=== PATIENT | male | born 1950 | race Caucasian/White ===

== ENCOUNTER 2016-04-28 09:37 | Emergency (ER) | payer BC, OTHER ==
[~2016-04-28] VITALS: Ht 177.8 cm; Wt 93.0 kg
[~2016-04-28 09:37] MED LIST: ATEN-175 PO; CETI10TA84 PO; CLR10 PO; FLUT0.0529 NAE; HOME1TAB18 PO; LOSA25TA18 PO; MONT1TAB3 PO
[2016-04-28 09:42] VITALS: TEMP 36.3; Ht 177.8 cm; Wt 93.0 kg
[2016-04-28] MEDS ORDERED: MULT-506 PO (10:21)
[2016-04-28] MEDS ORDERED: FEXO1TAB49 PO (10:23)
[2016-04-28] MEDS ORDERED: MAGN500T4 PO (10:26)
[2016-04-28] MEDS ORDERED: MELO7.5T5 PO (10:28)
[2016-04-28] MEDS ORDERED: GLUC1CAP35 PO (10:30)
[2016-04-28] MEDS ORDERED: CHOL20007 PO (10:31)
[2016-04-28] MEDS ORDERED: FLUT0.15 NAE (10:34)
--- NOTE | 2016-04-28 10:52 | DIAGNOSTIC IMAGING REPORT ---
LEFT SHOULDER MIN 2 VIEWS ROUTINE, LEFT HUMERUS MIN 2 VIEWS ROUTINE CLINICAL HISTORY: LEFT SHOULDER/ARM INJURY COMPARISON STUDY: None. FINDINGS: There is a comminuted fracture involving the proximal left humeral shaft and left humeral neck. This is slightly impacted but not significantly displaced. There is anterior inferior subluxation of the humeral head in relation to the glenoid. The left clavicle appears intact. Partially visualized cervical spinal fusion hardware. The mid to distal humerus appears intact. IMPRESSION: Comminuted fracture involving the proximal left humeral shaft and left humeral neck which is slightly impacted. There is also anterior inferior subluxation of the humeral head in relation to the glenoid. Electronically signed by: Patricio Honeycutt M.D. 04/28/2016 10:50 AM Dictated Date/Time: 04/28/2016 10:47 AM
[2016-04-28] MEDS ORDERED: ONDANSETRON INJ 2 MG/ML 2 ML VIAL IV STA (11:01)
[2016-04-28] MEDS ORDERED: MoRPHine SULFATE 4 MG/ML 1 ML CARP\\VIAL IV STA (11:01)
[2016-04-28] MEDS ORDERED: OXYC1TAB3 PO (11:58)
--- NOTE | 2016-04-28 11:59 | EMERGENCY ROOM VISIT NOTE ---
History First contact with patient: 10:14 Chief Complaint: FALL Stated Complaint: FELL, INJURED UPPER ARM AND SHOULDER/LEFT History of Present Illness The patient is a 66 year old male who presents to the Emergency Department by private vehicle for evaluation of his LEFT shoulder injury. The patient reports that he slipped on the ice at 8:30 this morning and landed on the lateral aspect of the LEFT shoulder. He did not strike his head. He did not lose consciousness. He reports intense pain to the LEFT shoulder. He reports increasing pain with range of motion. He complains of tingling into the fingers. He denies a previous history of fracture or injury to the affected area. The patient rates his current discomfort as an 8/10. He is tried nothing for his pain to this point. The patient denies any associated headaches , neck pain, chest pain, pleuritic pain, nausea, or vomiting. Review of Systems A complete 10-point Review of Systems was discussed with the patient, with pertinent positives and negatives listed in the History of Present Illness. All remaining Review of Systems questions can be considered negative unless otherwise specified. Past Medical/Surgical History Medical Problems: (1) Essential hypertension Surgical Problems: (1) History of cervical discectomy Social History Smoking Status: Never Smoker Smokeless Tobacco Use: No Alcohol Use: occasionally Marital Status: Housing Status: lives with significant other Occupation Status: employed Current/Historical Medications Scheduled Atenolol (Tenormin), 25 MG PO QAM Cholecalciferol (Vitamin D3), 1 TAB PO DAILY Fexofenadine Hcl (Franchesca Allergy), 1 TAB PO QPM Ncjzfccnwpc-Gvvbgeoxruz-Uef C- (Glucosamine Chondroitin), 500 MG PO BID Homeopathic Products (Leg Cramp Relief), 2 TAB PO HS Losartan Potassium (Cozaar), 25 MG PO QAM Magnesium Oxide (Mg Supplement (Magnesium), 500 MG PO QPM Montelukast Sodium (Singulair), 10 MG PO HS Multivitamin (Multivitamin), 1 TAB PO DAILY Scheduled PRN Cetirizine (Zyrtec), 10 MG PO DAILY PRN for ALLERGY SYMPTOMS Fluticasone Propionate (Nasal) (Flonase Allergy Relief), 1 SPRAY ANASTASIA HS PRN for Nasal Congestion Loratadine (Claritin), 10 MG PO DAILY PRN for ALLERGY SYMPTOMS Meloxicam (Mobic), Unknown Dose PO DAILY PRN for Pain Oxycodone Ir (Roxicodone Ir), 1-2 TAB PO Q4H PRN for Pain Allergies Coded Allergies: Cephalosporins (Verified Allergy, Unknown, KEFLEX = UNKNOWN RXN, 04/28/16) PER ADMISSION ORDER SHEET DR CASTREJON [id number] Chloramphenicol (Verified Allergy, Unknown, 04/28/16) Physical Exam Vital Signs Date Time Temp Pulse Resp B/P Pulse Ox O2 Delivery O2 Flow Rate FiO2 04/28/16 12:09 55 18 119/79 98 Room Air 04/28/16 11:39 57 20 121/72 97 Room Air 04/28/16 09:42 36.3 69 20 97/75 98 Room Air Pain Rating (0-10): 8 Physical Exam VITAL SIGNS - Vital signs and nursing notes were reviewed. GENERAL - 66-year-old male appearing his stated age and in noticeable discomfort throughout the exam. NECK - FROM of the cervical spine. No spinous process or paraspinal muscle tenderness to palpation. No nuchal rigidity. LUNGS - Chest wall symmetric without accessory muscle use, intercostals retractions, or central cyanosis. Normal vesicular breath sounds CTA B/L. No wheezes, rales, or rhonchi appreciated. CARDIAC - RRR with S1/S2. No murmur, rubs, or gallops appreciated. MUSCULOSKELETAL - Active ROM of the LEFT shoulder was limited in all directions. 10 of abduction. No step-off deformities of the clavicle were palpable. Moderate tenderness over the AC joint with palpation. Moderate tenderness to palpation at the bicipital insertion. Moderate tenderness to palpation over the deltoid. NEUROLOGIC - SENSORY: Spinothalamic tract was found to be intact with ability to discriminate sharp versus dull sensation at the level of the LEFT side of the neck down to the fingertips. No sensory deficits of the dorsal column were appreciated utilizing light touch for evaluation. VASCULAR - Capillary refill was brisk. +3/5 radial pulse palpated. Medical Decision & Procedures ER Provider Diagnostic Interpretation: Radiological imaging and reports were reviewed by myself. Radiologist's Interpretation as follows: LEFT SHOULDER MIN 2 VIEWS ROUTINE, LEFT HUMERUS MIN 2 VIEWS ROUTINE CLINICAL HISTORY: LEFT SHOULDER/ARM INJURY COMPARISON STUDY: None. FINDINGS: There is a comminuted fracture involving the proximal left humeral shaft and left humeral neck. This is slightly impacted but not significantly displaced. There is anterior inferior subluxation of the humeral head in relation to the glenoid. The left clavicle appears intact. Partially visualized cervical spinal fusion hardware. The mid to distal humerus appears intact. IMPRESSION: Comminuted fracture involving the proximal left humeral shaft and left humeral neck which is slightly impacted. There is also anterior inferior subluxation of the humeral head in relation to the glenoid. Medications Administered Medications (Trade) Dose Ordered Sig/Onofre Route Start Time Stop Time Status Last Admin Dose Admin Morphine Sulfate (MoRPHine SULFATE INJ) 4 mg NOW STAT IV 04/28/16 11:01 04/28/16 11:02 DC 04/28/16 11:23 4 MG Ondansetron HCl (Zofran Inj) 4 mg NOW STAT IV 04/28/16 11:01 04/28/16 11:02 DC 04/28/16 11:22 4 MG ED Course X-ray of the affected shoulder and humerus had been ordered by nursing staff prior to my evaluation. Patient was seen and evaluated by myself. IV lock was established. The patient was treated with 4 mg morphine and 4 mg Zofran for pain. X-ray results above. Imaging studies were discussed with the patient who acknowledges under standing. I did discuss the case with Leroy Curtis PA-C from orthopedic surgery. He suggests arm sling and close follow-up with their group. The patient was educated on worrisome symptoms for return visit to the emergency department. Patient discharged home in good condition. Medical Decision Given the patient's presentation and exam finds, I did elect to perform the above-mentioned workup. The patient resents today with moderate pain to the lateral aspect of the LEFT shoulder after sustaining a mechanical fall. The patient did not strike his head. There is no loss of consciousness. He has no neck pain or stiffness. Patient's pain was adequately controlled the emergency department. He is neurovascular intact distally. He was placed in an arm sling for comfort after discussion with orthopedic surgery. The patient was provided pain medication for breakthrough pain at home. He was educated on worrisome symptoms for return visit to the emergency department. Patient discharged home in good condition. In the evaluation and treatment of this patient, the following differential diagnoses were considered: Shoulder Contusion, Shoulder Fracture, Shoulder Dislocation, Thoracic Outlet Syndrome, Adhesive Capsulitis, Rotator Cuff Tear, Proximal Clavicle Head Fracture, Apical Pneumonia, Pneumothorax, Hemothorax, or TB. Impression Primary Impression: Humerus head fracture Departure Information Dispostion Home / Self-Care Condition GOOD Prescriptions Oxycodone Ir (Roxicodone Ir) 5 Mg Tab 1-2 TAB PO Q4H Y for Pain, #24 TAB For Initial Treatment Prov: Brian Randall PA-C 04/28/16 Referrals [facility] (PCP) Carlos Saleem, DO Patient Instructions [facility] Additional Instructions You have been treated in the Emergency Department for your LEFT Humerus Fracture. You have received pain medicine in the emergency department which impairs your ability to operate a vehicle. It is illegal for you to drive after receiving these medicines. You have been prescribed OxyIR to be used for pain control. This is a narcotic medication. You cannot drive or consume alcohol while on this medicine. This medicine should only be used for pain that cannot be controlled with over-the- counter pain medicines. For pain control, you can use the following [id number]-[id number] medicines (if >12 yo): - Regular strength (325mg/tab) Tylenol (acetaminophen) 2 tabs every 4-6 hours as needed. Do not exceed 12 tablets in a 24 hour period. Avoid taking more than 4 grams (4000 mg) of Tylenol per day. This includes any other sources of acetaminophen you may take on a regular basis. - Regular strength (200 mg/tab) Advil (ibuprofen) 1-2 tabs every 4-6 hours as needed. Do not exceed a dose of 3200 mg per day. If this is a recent injury (<24 hrs), ice can be applied to the area of pain for the first 3 days to help decrease pain and inflammation. You have been provided the number for an Orthopaedic Surgeon. You should call this number as soon as possible to establish a follow-up visit from today's Emergency Department visit. Keep the shoulder brace in place until evaluated by Orthopedics. Return to the Emergency Department if your current symptoms worsen despite treatment course outlined above, or if you develop any of the following symptoms : intractable pain despite aforementioned treatment course or new onset of numbness or tingling of the arm. Problem Qualifiers Primary Impression: Humerus head fracture Encounter type: initial encounter Fracture type: closed Laterality: left Qualified Codes: S42.292A - Other displaced fracture of upper end of left humerus, initial encounter for closed fracture
[2016-04-28 12:09] VITALS: BP 119/79; PULSE 55; O2SAT 98
--- NOTE | 2016-04-28 14:59 | EMERGENCY ROOM VISIT NOTE ---
ED Visit Note First contact with patient: 10:14 I have personally seen and evaluated the patient with the PA. I agree with the diagnosis and management decisions and have been personally involved in the case. Please see Brian Randall PA-C's notes for further details of the history, physical and visit.
== END 2016-04-28 12:11 | disposition home or self-care (01) ==
LOC: C.EDB 09:39 → C.EDC 12:11
DX: S42.292A Other displaced fracture of upper end of left humerus, initial encounter for closed fracture (principal); W00.0XXA Fall on same level due to ice and snow, initial encounter; I10 Essential (primary) hypertension

== ENCOUNTER → 2016-05-05 | Outpatient (CLI) | payer BC ==
[~2016-05-05] MED LIST changes: +CHOL20007 PO; +FEXO1TAB49 PO; -FLUT0.0529 NAE; +FLUT0.15 NAE; +GLUC1CAP35 PO; +MAGN500T4 PO; +MELO7.5T5 PO; +MULT-506 PO; +OXYC1TAB3 PO
--- NOTE | 2016-05-05 14:12 | DIAGNOSTIC IMAGING REPORT ---
ULTRASOUND LEFT UPPER EXTREMITY VENOUS CLINICAL HISTORY: Left arm pain and swelling. COMPARISON STUDY: No priors. TECHNIQUE: Real-time, grayscale, and color Doppler sonography of the deep veins of the left upper extremity is performed. Compression and augmentation were utilized. FINDINGS: There is no sonographic evidence of deep venous thrombosis identified in the left upper extremity. The left internal jugular, axillary, and brachial veins are patent and normally compressible. Normal venous waveforms and augmentation are seen within the left subclavian vein. There is nonocclusive acute-appearing superficial venous thrombus identified within the left basilic vein. The cephalic vein appears clear. The visualized radial and ulnar veins are patent. IMPRESSION: 1. There is no sonographic evidence of deep venous thrombosis identified in the left upper extremity. 2. Nonocclusive and acute appearing superficial venous thrombus is identified within the left basilic vein. Electronically signed by: Marcell Boucher M.D. 05/05/2016 2:11 PM Dictated Date/Time: 05/05/2016 2:09 PM
== END | disposition home or self-care (01) ==
LOC: C.ULTRBC 13:15
PROVIDERS: ATTEND Orthopaedic Surgery
DX: M79.602 Pain in left arm (principal); M79.89 Other specified soft tissue disorders; I82.612 Acute embolism and thrombosis of superficial veins of left upper extremity

== ENCOUNTER → 2016-10-13 | Outpatient (CLI) | payer BC ==
[2016-10-13 17:05] LABS: BASO % 1.6 %; BASO ABS # 0.09 K/uL (0-0.2); COMPLETE YES; EOS % 2.3 %; HEMATOCRIT 40.3 % (42-52); IG% 0.2 %; LYMPH ABS # 2.42 K/uL (1.2-3.4); MEAN CELL VOLUME 89.8 fL (80-100); MEAN CORPUSCULAR HEMOGLOBIN 30.5 pg (25-34); MEAN PLATELET VOLUME 9.6 fL (7.4-10.4); NEUT % 46.9 %; PLATELET COUNT 265 K/uL (130-400); RED BLOOD COUNT 4.49 M/uL (4.7-6.1); WHITE BLOOD COUNT 5.63 K/uL (4.8-10.8)
[2016-10-13 17:27] LABS: ALT/SGPT 28 U/L (12-78); BLOOD UREA NITROGEN 16 mg/dl (7-18); BUN/CREATININE RATIO 14.9 (10-20); CALCIUM 9.1 mg/dl (8.5-10.1); CARBON DIOXIDE 27 mmol/L (21-32); CHLORIDE 108 mmol/L (98-107); GLUCOSE 101 mg/dl (70-99); SODIUM 141 mmol/L (136-145)
[2016-10-13 17:30] LABS: ALB/GLOB RATIO 1.1 (0.9-2); ALKALINE PHOSPHATASE 67 U/L (45-117); AST/SGOT 17 U/L (15-37); FERRITIN 19.6 ng/ml (8.0-388.0); TOTAL IRON BINDING CAPACITY 399 mcg/dl (250-450)
[2016-10-14 07:13] LABS: ESTIMATED AVERAGE GLUCOSE 114 mg/dl; HA1C FLAG Normal (Normal)
--- NOTE | 2016-10-20 11:49 | CODING QUERY MEDICAL NECESSITY ---
CQSUPPORTING DIAGNOSIS NEEDED A supporting diagnosis is required for the test/procedure performed on this patient in order for us to be reimbursed by the patient's insurance. Please provide a supporting diagnosis for the following test/procedure listed below next to the test name along with your signature. *If there is no additional diagnosis for this patient that would support the following test/procedure please document that below next to the test/procedure. Test(s)/Procedure(s) that require a supporting diagnosis: DOS 10/13/16 VITAMIN B12 TEST THIS TEST WAS ORDERED BY MAU BAILEY Provider Signature: Date: Thank you Valerie Casas Health Information Management Once completed, please kindly fax back to [phone] For questions please call [phone]
== END | disposition home or self-care (01) ==
LOC: C.LABBC 13:33
PROVIDERS: ATTEND Physician Assistant Medical
DX: D64.9 Anemia, unspecified (principal); I10 Essential (primary) hypertension; R73.03 Prediabetes

== ENCOUNTER → 2016-11-18 | Outpatient (CLI) | payer BC ==
[~2016-11-18] MED LIST changes: -OXYC1TAB3 PO
--- NOTE | 2016-11-18 16:01 | DIAGNOSTIC IMAGING REPORT ---
LEFT SHOULDER MRI HISTORY: Left shoulder PAIN, ADHESIVE CAPSULITIS, S/P PROXIMAL HUMERUS FX TECHNIQUE: Multiplanar multisequence MRI of the left shoulder was performed without contrast. COMPARISON STUDY: Left shoulder 04/28/2016. FINDINGS: AC joint: Moderate AC joint arthrosis demonstrated by cartilage space narrowing, marginal osteophytes, a small amount of joint fluid. Rotator cuff: There is thickening and increased signal within the supraspinatus tendon consistent with a tendinopathy. Probable small partial tears at the bursal surface of the distal supraspinatus tendon and the bursal surface of the distal infraspinatus tendon. No evidence for retraction. Suspect a partial undersurface tear of the teres minor tendon which is likely chronic. There is fatty atrophy of the teres minor muscle. No fluid within the subacromial/subdeltoid bursa. Labrum: The labrum is truncated posteriorly and demonstrates linear abnormal signal. There is also abnormal appearing and indistinct superior and inferior labrum. Therefore, this is consistent with a circumferential tear. Biceps tendon: Thickened and increased signal proximally consistent with a tendinopathy/partial tear. Bones: Healing fracture within the humeral neck. No dislocation. Cartilage: Mild cartilage thinning at the humeral head. Miscellaneous: There is abnormal edema and soft tissue at the rotator cuff interval. This could be seen in the setting of adhesive capsulitis. IMPRESSION: 1. Abnormal edema and soft tissue thickening at the rotator cuff interval. This could be seen in the setting of adhesive capsulitis. 2. Healing humeral neck fracture. No acute fracture or dislocation. 3. Partial tears involving the supraspinatus, infraspinatus, teres minor tendons. The teres minor muscle demonstrates fatty atrophy suggestive of chronic injury. 4. Circumferential tear of the labrum. 5. Partial tear/tendinopathy of the proximal long head of the biceps tendon. Electronically signed by: Patricio Honeycutt M.D. 11/18/2016 3:59 PM Dictated Date/Time: 11/18/2016 3:47 PM
== END | disposition home or self-care (01) ==
LOC: C.MRIBC 14:24
PROVIDERS: ATTEND Orthopaedic Surgery
DX: M25.512 Pain in left shoulder (principal)

== ENCOUNTER → 2017-02-24 | Day surgery (SDC) | payer BC ==
[2017-02-03 14:37] VITALS: Ht 177.8 cm; Wt 92.3 kg
[~2017-02-24] VITALS: Ht 177.8 cm; Wt 92.3 kg
[~2017-02-24] MED LIST changes: +ATEN-173 PO; -ATEN-175 PO; +ATROPINE SULFATE 0.1 MG/ML 5ML SYR IV PRN; +BUPIVACAINE/EPINEPHRINE 0.25% 1:200,000 30 ML VIAL ONE; -CETI10TA84 PO; -CHOL20007 PO; +CLINDAMYCIN PHOS 150 MG/ML 2 ML VIAL IV SCH; -CLR10 PO; +DEXAMETHASONE SOD INJ 4 MG/ML VIAL ONE; +EpHEDrine SULFATE INJ 50 MG/ML AMP IV PRN; +EpINEphrine INJ 1MG/ML AMP 1 MG/ML AMP ONE; +FENTANYL CITRATE INJ 50 MCG/1 ML 2 ML VIAL ONE; +FLUMAZENIL 0.1 MG/1 ML 10 ML VIAL IV PRN; +GLUC1CAP28 PO; -GLUC1CAP35 PO; -HOME1TAB18 PO; +HYDROmorphone INJ 2 MG/ML SYR/VIAL IV PRN; +KETO10TA PO; +KETOROLAC TROMETHAMINE 30 MG/ML VIAL IV STA; +KETOROLAC TROMETHAMINE 30 MG/ML VIAL ONE; +LABETALOL HCL IV 5 MG/ML 20ML IV PRN; +LACTATED RINGER'S 1000ML 1,000 ML IV SCH; +LIDOCAINE HCL 2% 2 ML VIAL (20MG/ML) ONE; -LOSA25TA18 PO; +LOSA50TA6 PO; -MAGN500T4 PO; +MELO15TA4 PO; -MELO7.5T5 PO; +MEPERIDINE HCL 25 MG/ML CARP IV PRN; +METHYLPREDNISOLONE ACETATE 80 MG/ML VIAL ONE; +MIDAZOLAM HCL 1 MG/ML 2ML VIAL ONE; -MONT1TAB3 PO; +NALOXONE HCL 0.4 MG/1 ML VIAL/CARP IV PRN; +ONDANSETRON INJ 2 MG/ML 2 ML VIAL IV PRN; +ONDANSETRON INJ 2 MG/ML 2 ML VIAL ONE; +OXYC-57 PO; +OXYCODONE/ACETAMINOPHEN 5-325 TAB PO PRN; +PHENYLEPHRINE 100MCG/ML 5ML SYR IV PRN; +PROPOFOL IV EMULSION 10 MG/ML 20 ML VIAL IV ONE; +ROPIVACAINE 0.5% 5 MG/ML 30 ML VIAL ONE; +SODIUM CHLORIDE 0.9% 1000ML 1,000 ML IV SCH
--- NOTE | 2017-02-24 06:48 | History & Physical Bridge - SC ---
H&P Re-Evaluation Bridge Note: I have examined the patient, reviewed the History & Physical and in the interval since the performance of the History & Physical I have noted the following changes of clinical significance: No changes noted
--- NOTE | 2017-02-24 09:32 | Discharge Instructions-SurgCtr ---
Discharge Instructions Date of Service Feb 24, 2017. Visit Reason for Visit: Left Shoulder Biceps Tendinitis, Pain Discharge Discharge Diagnosis / Problem: SAME ABOVE Discharge Goals Goal(s): Decrease discomfort, Improve function Activity Recommendations Activity Limitations: as noted below Lifting Limitations: gradually increase as tolerated Shower/Bathe: tomorrow Driving or Machine Use: resume 1 day after discharge Anesthesia . Post Anesthesia Instructions: If you have had General Anesthesia or IV Sedation: * Do not drive today. * Resume driving when surgeon permits. * Do not make important decisions or sign legal documents today. * Call surgeon for: 1. Temperature elevations greater than 101 degrees F. 2. Uncontrollable pain. 3. Excessive bleeding. 4. Persistent nausea and vomiting. 5. Medication intolerance (nausea, vomiting or rash). * For nausea and vomiting use only clear liquids such as: tea, soda, bouillon until nausea subsides, then gradually increase diet as tolerated. * If you have any concerns or questions, call your surgeon's office. If physician is unavailable and it is an emergency, call 911 or go to the nearest emergency room. . Instructions / Follow-Up Instructions / Follow-Up MEDICATIONS: * Resume previous medications unless instructed otherwise by your surgeon. * Always take pain medication on a full stomach or with food to avoid upset stomach. * Do not drink alcohol or drive while taking narcotics. * Ibuprofen or Tylenol may be taken if narcotic not needed. SPECIAL CARE INSTRUCTIONS: __ None _X_ Keep extremity elevated and iced x 48 hours; apply ice 20-30 minutes 8-10 times/day. May remove at night. _X_ Sling (REMOVE AFTER 24 HOURS) __24 hrs/day __ Remove at night __ Shoulder Immobilizer __ 24 hrs/day __ Remove at night _X_ Dressing __ Maintain until seen in office, may shower with plastic over site _X_ Remove dressings in 24-48 hours and then may shower _X_ Cover incisions with band-aids after showering __ Do not remove steri-strips Call physician if chills or temperature rises above 102 degrees or pain unrelieved by prescribed pain medications at . . Diet Recommendations Home Diet: no limitations Fluid Restriction: None Procedures Procedures Performed: Left Shoulder Arthroscopy, Extensive Debridement Lysis of Adhesions, Biceps Tenotomy Pending Studies Studies pending at discharge: no Work Instructions Return To Work: after follow-up Medical Emergencies . Who to Call and When: Medical Emergencies: If at any time you feel your situation is an emergency, please call 911 immediately. . Non-Emergent Contact Non-Emergency issues call your: Primary Care Provider Call Non-Emergent contact if: you have a fever, temperature is above 101.5 . . "Provider Documentation" section prepared by Israel Curtis. .
--- NOTE | 2017-02-24 09:37 | [facility] Post Operative Brief Note ---
Immediate Operative Summary Operative Date Feb 24, 2017. Pre-Operative Diagnosis Left Shoulder Biceps Tendinitis, Pain Post-Operative Diagnosis Same Procedure(s) Performed Left Shoulder Arthroscopy, Extensive Debridement Lysis of Adhesions, Biceps Tenotomy Surgeon Dr. Saleem Plastic Roller Surgeon(s) Jose Curtis PA-C Estimated Blood Loss 5ml Findings as above Specimens None Complication(s) None Disposition Recovery Room / PACU
[2017-02-24] MEDS: FENTANYL CITRATE INJ 50 MCG/1 ML 2 ML VIAL IV PRN ×4 (09:50→10:21)
--- NOTE | 2017-02-24 10:36 | Anesthesia Progress Nt - [facility] ---
Anesthesia Post Op Note Date & Time Feb 24, 2017 at 10:36 Vital Signs Pain Intensity: 2 Vital Signs Past 12 Hours Date Time Temp Pulse Resp B/P (MAP) Pulse Ox O2 Delivery O2 Flow Rate FiO2 02/24/17 10:29 36.1 57 15 123/81 96 Room Air 02/24/17 09:33 36.6 55 16 142/88 100 Mask 02/24/17 08:38 60 31 100 02/24/17 08:38 60 02/24/17 08:37 61 02/24/17 08:37 61 27 100 02/24/17 08:36 121/79 02/24/17 08:32 56 21 98 02/24/17 08:32 57 02/24/17 08:31 125/78 02/24/17 08:27 54 02/24/17 08:27 54 11 99 02/24/17 08:26 107/74 02/24/17 08:22 55 02/24/17 08:22 54 26 100 02/24/17 08:21 51 02/24/17 08:21 52 11 124/74 100 02/24/17 08:16 53 02/24/17 08:16 53 8 123/80 99 02/24/17 08:15 49 02/24/17 08:15 48 8 100 02/24/17 08:11 134/85 02/24/17 08:10 57 0 98 02/24/17 08:10 56 02/24/17 06:43 36.4 52 16 156/90 (112) 98 Room Air Notes Mental Status: alert / awake / arousable, participated in evaluation Pt Amnestic to Procedure: Yes Nausea / Vomiting: adequately controlled Pain: adequately controlled Airway Patency, RR, SpO2: stable & adequate BP & HR: stable & adequate Hydration State: stable & adequate Anesthetic Complications: no major complications apparent
[2017-02-24 11:00] VITALS: TEMP 36.3
[2017-02-24 11:27] VITALS: BP 126/76; PULSE 60; O2SAT 99
--- NOTE | 2017-02-24 11:29 | OPERATIVE REPORT ---
DATE OF OPERATION: 02/24/2017 PREOPERATIVE DIAGNOSIS: Adhesive capsulitis 9 months status post left proximal humerus fracture. POSTOPERATIVE DIAGNOSIS: Adhesive capsulitis of the left shoulder with displaced labral tear and biceps tendinitis. PROCEDURE: Left shoulder diagnostic arthroscopy with extensive debridement, lysis of adhesions, biceps tenotomy and manipulation under anesthesia. SURGEON: Dr. Carlos Saleem. HOSPITAL TECHNICIAN: Leroy Curtis PA-C, whose assistance was necessary for positioning the arm and helping with instrumentation. ANESTHESIA: General with a left interscalene nerve block. COMPLICATIONS: None. CONDITION: Stable to PACU. INDICATIONS: Cruzito is a pleasant 66-year-old male who fell and sustained a minimally displaced left proximal humerus fracture 9 months ago. He was treated conservatively by my partner. Unfortunately, he was unable to gain range of motion and he had constant pain in his shoulder. X-rays showed the fracture had healed in acceptable alignment and he did not have the motion that we would expect. He elected to proceed with a diagnostic arthroscopy with debridement and lysis of adhesions. OPERATION AND FINDINGS: On 02/24/2017, he arrived at [facility] for the above procedure. He was seen in the preoperative holding area and the operative extremity was identified and signed. He was given a preoperative antibiotic and a left interscalene nerve block. He was taken back to the operating room, laid on the table in supine position and put under general anesthesia. The left shoulder was then prepped and draped in sterile fashion. Time-out was done and the patient and operative extremity was properly identified. On preoperative physical examination, he had about 60 degrees of abduction, 30 degrees of external rotation and 20 degrees of internal rotation. I did not do manipulation initially because of the fracture. The scope was placed in the posterior portal. Diagnostic arthroscopy showed some small grade 2 chondral changes on the humeral head and the glenoid, but nothing severe. There was a significant displaced labral tear that was incarcerated within the glenohumeral joint. The biceps tendon was slightly subluxated anteriorly and very red and inflamed. The supraspinatus, infraspinatus, teres minor, and subscapularis were all intact. An anterior portal was made. A shaver was used to start an extensive debridement including removal of the displaced labral fragments. The biceps tendon was pulled into the joint and looked very red and pathologic so the biceps tendon was arthroscopically tenotomized. An ablator was then used to start a lysis of adhesions. The entire rotator interval was opened up. Time was then spent carefully releasing the entire middle and inferior glenohumeral ligaments. I was able to release the inferior glenohumeral ligament all the way around to the posterior inferior glenohumeral ligament. Care was taken not to disrupt the subscapularis or the axillary nerve. A shaver was used intermittently to continue debridement and remove any soft tissue remnants. Once I was happy with the complete release, the scope was placed into the anterior portal and from the posterior portal a shaver and ablator were used to continue the capsular release posteriorly through the posterior inferior glenohumeral ligament and up the posterior capsule. Again, care was taken not to disrupt the infraspinatus. A shaver was used to continue debridement of any loose tissues or loose bodies. Once I was happy with the overall release and the overall hemostasis of the shoulder arthroscopic instruments were removed. A gentle manipulation was attempted under anesthesia. I was able to get a little bit more motion with the manipulation but I did not push hard because of the fracture. The scope was placed back into the glenohumeral joint. Final diagnostic arthroscopy showed no additional pathology. The capsule had been completely released. The rotator interval was completely opened up and the biceps tendon was released. The rotator cuff was intact and the cartilage had some grade 2 changes. A spinal needle was placed for intra-articular injection. Arthroscopic instruments removed. Portal sites were closed with 3-0 nylon. The shoulder was then injected with 80 mg of Depo-Medrol and 5 mL of Marcaine. He was then placed in a soft compressive dressing and extubated and taken to the postanesthesia care unit in stable condition. He tolerated the procedure well. I attest to the content of the Intraoperative Record and any orders documented therein. Any exception s are noted below.
== END | disposition home or self-care (01) ==
LOC: X.SURG 06:29
PROVIDERS: ATTEND Orthopaedic Surgery
DX: M75.02 Adhesive capsulitis of left shoulder (principal); M75.22 Bicipital tendinitis, left shoulder; S46.012A Strain of muscle(s) and tendon(s) of the rotator cuff of left shoulder, initial encounter; W19.XXXA Unspecified fall, initial encounter; I10 Essential (primary) hypertension

== ENCOUNTER 2023-08-13 05:41 | Observation (INO) ==
[2023-08-13] MEDS: HYDROmorphone INJ 0.5 MG/0.5 ML SYR IV PRN ×3 (07:05→13:25)
[2023-08-13] MEDS: methylPREDNISolone 125 MG/2 ML VIAL IV STA (07:05)
[2023-08-13] MEDS: ONDANSETRON INJ 2 MG/ML 2 ML VIAL IV STA (07:05)
--- NOTE | 2023-08-13 07:18 | Emergency Department Note ---
Impression & Plan Lumbar radiculopathy, acute, Uncontrolled pain ED Provider Note CHIEF COMPLAINT: Lower back pain HISTORY OF PRESENT ILLNESS: This 73-year-old male patient with past medical history of lumbar spinal stenosis, cervical fusion at [facility] approximately 14 years ago, hypertension, hyperlipidemia, prediabetes migraine headaches presents emergency department for the second time related to lower back pain and left lower extremity radiculopathy. He states the pain began approximately 2 weeks ago and radiates down into the left leg, but he believes the left leg is weak. 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 Previous visit medical records were reviewed. REVIEW OF SYSTEMS: A review of systems was performed with positives and pertinent negatives listed in the history of present illness. 10 systems were reviewed and are otherwise negative. ALLERGIES: see below MEDICATIONS: see below PMH: see below SOCIAL HISTORY: see below DDx: Disc herniation, lumbar compression fracture, spinal stenosis, cauda equina, AAA among others. PHYSICAL EXAM: Vital signs reviewed. Noted to be hypertensive General: Generally well-appearing 73-year-old male, in significant discomfort. HEENT: No scleral icterus, PERRLA, neck supple. Atraumatic. Cardiovascular: Regular rate and rhythm, no extra sounds. Pulmonary: Clear to auscultation bilaterally, normal work of breathing. Abdomen: Soft, nontender, nondistended, positive bowel sounds. Musculoskeletal: Atraumatic, no peripheral edema. Positive left lower extremity straight leg raise, 3/5 strength left lower extremity. 5/5 right lower extremity. Diminished deep tendon patellar reflex on the left, 2+ on the right. Neurologic: Patient awake alert and oriented x 3, speech is clear Skin: Warm, dry, no rash EMERGENCY DEPARTMENT COURSE/MDM: This patient was evaluated and appeared to be in significant discomfort. IV access was established and patient was medicated with Dilaudid 0.5 mg IV, Solu-Medrol 60 mg IV and Zofran 4 mg IV. MRI of the lumbar spine was ordered given the patient's recent visit to the ED and no improvement after steroids and muscle relaxers. Patient does appear to have weakness of this left lower extremity. He did require additional dosing of the Dilaudid. MRI was performed and is read as worsening spinal stenosis with central canal narrowing. Urinary bladder is distended however the patient did urinate after MRI. I did discuss the case with the hospitalist, Dr. Arceo who will evaluate the patient for admission and further management as he has been unable to ambulate and bear weight at home. Patient will likely require consultation with orthopedic spine. Patient is aware of the plan and has agreed. MONITORING: An order for cardiac monitoring was placed and the patient is noted to be in a normal sinus rhythm at 79 beats per minute. RADIOLOGY: MRI of the lumbar spine DISPOSITION: Admission Past Med/Surg History Problem List (Updated 08/19/23 @ 13:58 by Nadine Hooker MD) Uncontrolled pain (Acute) Low back pain radiating to lower extremity Spondylolisthesis at L4-L5 level Spondylolisthesis at L3-L4 level History of lumbar laminectomy for spinal cord decompression Lumbar disc herniation with radiculopathy Neurogenic claudication due to lumbar spinal stenosis Bladder distension Muscle spasm Lumbar radiculopathy, acute (Acute) Migraine without aura, not intractable Hypertension Dyslipidemia Prediabetes Spinal stenosis Anemia Lumbar spondylosis Migraine Medical History History of colon polyps Degenerative disc disease Glaucoma Allergic rhinitis due to pollen Surgical History History of lumbar surgery L4 (same time as Cervical spinal fusion) @ [facility] [place] History of open reduction and internal fixation (ORIF) procedure left shoulder, no hardware History of fusion of cervical spine (~2009) C4, C6---limited ROM from side to side History of appendectomy History of colonoscopy with polypectomy 04/2019 repeat 5 years Family History Father Diabetes Transient ischemic attack Parkinson's disease Stroke Mother Migraines Hypertension Other No family history of adverse response to anesthesia Denies family history of Ovarian cancer Prostate cancer Myocardial infarction Breast cancer Lung cancer Colorectal cancer Social History Smoking Status: Never smoker Second Hand Exposure: No (father smoked); Do You Dip or Chew Tobacco: No; Hx Alcohol Use: Yes Alcohol type: wine Alcohol Intake Frequency: 2-3 x/Week Hx Substance Use: No Preferred Language: Surinamese Communication Ability: Effective Visual Impairment: Limited Hearing Ability: Normal Recreational Director Required: No Beliefs That Will Affect Care: None marital status: Current Living Situation: Spouse current occupational status: retired How many Children do You have: 0 Feels Safe at Home: Yes Childhood Exposure to Second-Hand Smoke: Yes caffeine: Yes (coffee, tea ) Dental Care, Regularly: Yes Physical Activity Frequency: Daily Seatbelt Use: always Sunscreen Use: Yes Assistive Devices: None Allergies Allergies Allergy/AdvReac Type Severity Reaction Status Date / Time cephalexin [From Keflex] Allergy Intermediate Hives Verified 08/15/23 09:32 cephalothin Allergy Intermediate Hives Verified 08/15/23 09:32 chloramphenicol Allergy Intermediate Hives Verified 08/15/23 09:32 pollen extracts Allergy Mild sneezing/watery Verified 08/15/23 09:32 eyes ragweed pollen Allergy Mild sneezing/watery Verified 08/15/23 09:32 eyes Home Meds Home Medications Medication Instructions Recorded Confirmed [id number] 250 1 tab PO Q6H Facial Pain 08/13/23 08/15/23 mg-250 mg-65 mg tablet (Excedrin Migraine) diphenhydramine 25 1 tab PO HS 08/13/23 08/15/23 mg-acetaminophen 500 mg tablet (Tylenol PM Extra Strength) ibuprofen 200 mg tablet (Advil) 200 mg PO Q6H facial pain 08/13/23 08/15/23 cholecalciferol (vitamin D3) 50 50 mcg PO DAILY 08/15/23 08/15/23 mcg (2,000 unit) capsule coenzyme Q10 100 mg PO DAILY 08/15/23 08/15/23 fexofenadine 180 mg tablet 180 mg PO DAILY 08/15/23 08/15/23 (Franchesca Allergy) latanoprost 0.005 % eye drops 1 drp ophthalmic (eye) QPM 08/15/23 08/15/23 magnesium 500 mg PO DAILY 08/15/23 08/15/23 meloxicam 15 mg tablet 15 mg PO DAILY PRN 08/15/23 08/15/23 multivitamin 1 tab PO DAILY 08/15/23 08/15/23 pseudoephedrine HCl 30 mg tablet 30 mg PO Q4H 08/15/23 08/15/23 (Sudafed) Previous Rx's Medication Instructions Recorded fluticasone propionate 50 1 spray intranasal QPM #16 grams 02/04/21 mcg/actuation nasal spray,suspension atenolol 25 mg tablet 25 mg PO DAILY #90 tabs 01/03/23 losartan 100 mg tablet 100 mg PO DAILY #90 tabs 01/03/23 amlodipine 5 mg tablet 5 mg PO DAILY #90 tabs 01/11/23 montelukast 10 mg tablet 10 mg PO QPM #90 tabs 05/02/23 rizatriptan 10 mg disintegrating See Rx Instructions PO .COMPLEX 05/19/23 tablet #14 tabs cyclobenzaprine 10 mg tablet 10 mg PO TID PRN muscle spasm #21 08/10/23 tabs gabapentin 100 mg capsule 100 mg PO TID 30 days #90 caps 08/14/23 oxycodone 5 mg tablet 5 mg PO Q6H PRN pain #16 tabs 08/14/23 gabapentin 300 mg capsule 300 mg PO TID #90 caps 08/15/23 oxycodone-acetaminophen 5 mg-325 1 tab PO BID #20 tabs 08/15/23 mg tablet (Percocet) Results & Data (ED) Vital Signs Vital Signs - 24 hr 08/13/23 05:40 08/13/23 05:40 08/13/23 06:37 Temperature 36.4 C L Temperature Source Oral Pulse Rate 79 Pulse Rate [Finger] 79 Pulse Rhythm [Finger] Regular Pulse Strength [Finger] Normal Respiratory Rate 22 22 Respiratory Effort / Characteristics Non-Labored Non-Labored Respiratory Depth Normal Normal Blood Pressure 183/113 H Blood Pressure [Left Arm] 183/113 H Blood Pressure Mean 136 Blood Pressure Mean [Left Arm] 136 Pulse Oximetry 99 99 95 Oxygen Delivery Method Room Air Room Air Room Air Sepsis Recent Fever Within 48 Hours No Sepsis New/Unexplained Change in Mental Status No Sepsis Action Taken by Nursing No Action Required 08/13/23 07:18 08/13/23 09:00 Temperature Temperature Source Pulse Rate Pulse Rate [Finger] 87 87 Pulse Rhythm [Finger] Pulse Strength [Finger] Respiratory Rate 18 18 Respiratory Effort / Characteristics Respiratory Depth Blood Pressure Blood Pressure [Left Arm] 163/95 H 172/99 H Blood Pressure Mean Blood Pressure Mean [Left Arm] 117 123 Pulse Oximetry 95 94 Oxygen Delivery Method Room Air Room Air Sepsis Recent Fever Within 48 Hours Sepsis New/Unexplained Change in Mental Status Sepsis Action Taken by Snf Medications Current Medication List: was personally reviewed by me Laboratory Data Attestation: I reviewed the patient's lab results. 08/14/23 07:13 08/14/23 07:13 Lab Results 08/13/23 Range/Units Unknown WBC 8.41 (4.8-10.8) K/ul RBC 4.56 L (4.70-6.10) M/uL Hgb 14.3 (14.0-18.0) g/dl Hct 41.2 L (42.0-52.0) % MCV 90.4 (80.0-100.0) fL MCH 31.4 (25.0-34.0) pg MCHC 34.7 (32.0-36.0) g/dL RDW Std Deviation 39.8 (36.4-46.3) fL RDW Coeff of Shirley 12.0 (11.5-14.5) % Plt Count 297 (130-400) K/uL MPV 9.4 (9.4-12.4) fL Immature Gran % (Auto) 0.4 % Neut % (Auto) 56.1 % Lymph % (Auto) 36.4 % Dawes % (Auto) 6.5 % Eos % (Auto) 0.1 % Baso % (Auto) 0.5 % Neut # (Auto) 4.72 (1.40-6.50) K/uL Lymph # (Auto) 3.06 (1.20-3.40) K/uL Dawes # (Auto) 0.55 (0.11-0.59) K/uL Eos # (Auto) 0.01 (0.00-0.50) K/uL Baso # (Auto) 0.04 (0.00-0.20) K/uL Immature Gran # (Auto) 0.03 (0.01-0.20) K/uL Sodium 138 (136-145) mmol/L Potassium 3.9 (3.5-5.1) mmol/L Chloride 105 (98-107) mmol/L Carbon Dioxide 26 (21-32) mmol/L Anion Gap 7 (3-11) BUN 27 H (6-23) mg/dl Creatinine 1.00 (0.6-1.4) mg/dl Est Cr Clr Drug Dosing 79.0 ml/min Est GFR ( Amer) 86.8 ml/min Est GFR (Non-Af Amer) 74.9 ml/min BUN/Creatinine Ratio 27.0 H (10-20) Glucose 103 H (70-99(Fasting)) mg/dl Calcium 9.1 (8.6-10.3) mg/dl Total Bilirubin 0.5 (0.2-1.0) mg/dl AST 12 L (13-39) U/L ALT 13 (7-52) U/L Alkaline Phosphatase 35 (34-104) U/L Total Protein 6.8 (6.0-8.3) gm/dl Albumin 4.1 (3.4-5.0) gm/dl Globulin 2.7 (2.5-4.0) gm/dl Albumin/Globulin Ratio 1.5 (0.9-2) Administered Medications Discontinued Medications Acetaminophen (Acetaminophen 500 Mg Tab) 1,000 mg PO TID SYDNEY Stop: 09/12/23 20:59 Last Admin: 08/14/23 13:48 Dose: 1,000 mg Documented By: Admin: 08/14/23 08:18 Dose: 1,000 mg Documented By: Admin: 08/13/23 21:01 Dose: 1,000 mg Documented By: JONATHAN Amlodipine Besylate (Amlodipine Besylate 5 Mg Tab) 5 mg PO NOW ONE Stop: 08/13/23 11:07 Last Admin: 08/13/23 11:52 Dose: 5 mg Documented By: MAXIMILIAN Amlodipine Besylate (Amlodipine Besylate 5 Mg Tab) 5 mg PO DAILY [place]NEY Stop: 09/13/23 08:59 Last Admin: 08/14/23 08:19 Dose: 5 mg Documented By: GIOVANI Atenolol (Atenolol 25 Mg Tablet) 25 mg PO QAM [place] Stop: 08/14/23 11:14 Last Admin: 08/13/23 11:52 Dose: 25 mg Documented By: MAXIMILIAN Atenolol (Atenolol 25 Mg Tablet) 25 mg PO DAILY SY[place]NEY Stop: 09/13/23 08:59 Last Admin: 08/14/23 08:19 Dose: 25 mg Documented By: GIOVANI Diazepam (Diazepam 5 Mg/Ml 10ml Vial) 5 mg IV NOW STA Stop: 08/13/23 11:39 Last Admin: 08/13/23 11:53 Dose: 5 mg Documented By: MAXIMILIAN Docusate Sodium (Docusate Sodium 100 Mg Cap) 100 mg PO BID [facility] Stop: 09/12/23 20:59 Last Admin: 08/14/23 08:20 Dose: 100 mg Documented By: Admin: 08/13/23 21:00 Dose: 100 mg Documented By: JONATHAN Famotidine (Famotidine 20 Mg Tab) 20 mg PO QAM [facility] Stop: 09/13/23 08:59 Last Admin: 08/14/23 08:20 Dose: 20 mg Documented By: GIOVANI Fluticasone Propionate (Fluticasone Propionate Na Spr 16 Gm Btl) 1 sprays ANASTASIA QPM [place]DNEY Stop: 09/12/23 20:59 Last Admin: 08/13/23 21:00 Dose: 1 sprays Documented By: JONATHAN Gabapentin (Gabapentin 100 Mg Cap) 100 mg PO ONE STA Stop: 08/13/23 11:43 Last Admin: 08/13/23 12:42 Dose: 100 mg Documented By: MAXIMILIAN Gabapentin (Gabapentin 100 Mg Cap) 100 mg PO TID [facility] Stop: 09/12/23 20:59 Last Admin: 08/14/23 13:49 Dose: 100 mg Documented By: Admin: 08/14/23 08:21 Dose: 100 mg Documented By: Admin: 08/13/23 21:01 Dose: 100 mg Documented By: JONATHAN Hydromorphone HCl (Hydromorphone Inj 0.5 Mg/0.5 Ml Syr) 0.5 mg IV Q6H PRN PRN Reason: Pain Stop: 08/27/23 06:36 Last Admin: 08/13/23 07:05 Dose: 0.5 mg Documented By: MAXIMILIAN Hydromorphone HCl (Hydromorphone Inj 0.5 Mg/0.5 Ml Syr) 0.25 mg IV Q1H PRN PRN Reason: Pain Stop: 08/27/23 08:40 Last Admin: 08/13/23 10:14 Dose: 0.25 mg Documented By: Admin: 08/13/23 08:53 Dose: 0.25 mg Documented By: MAXIMILIAN Hydromorphone HCl (Hydromorphone Inj 0.5 Mg/0.5 Ml Syr) 0.5 mg IV Q3H PRN PRN Reason: Pain (6,7,8,9,10) Stop: 08/27/23 13:06 Last Admin: 08/13/23 19:08 Dose: 0.5 mg Documented By: Admin: 08/13/23 13:25 Dose: 0.5 mg Documented By: CAROLYN Acetaminophen (Ofirmev) 1,000 mg in 100 mls @ 400 mls/hr IV NOW STA Stop: 08/13/23 11:38 Last Infusion: 08/13/23 12:24 Dose: Infused Documented By: Admin: 08/13/23 11:53 Dose: 400 mls/hr Documented By: MAXIMILIAN Lactated Ringer's (Lr) 1,000 mls @ 999 mls/hr IV .Q1H1M ONE Stop: 08/13/23 12:42 Last Infusion: 08/13/23 13:33 Dose: Infused Documented By: Admin: 08/13/23 12:02 Dose: 999 mls/hr Documented By: MAXIMILIAN Dexamethasone 4 mg/ Syringe 1 mls @ 1 mls/min IV Q6H [place]DNEY Stop: 09/12/23 17:59 Last Admin: 08/14/23 12:44 Dose: Not Given Documented By: Admin: 08/14/23 05:50 Dose: 1 mls/min Documented By: Admin: 08/13/23 23:15 Dose: 1 mls/min Documented By: Admin: 08/13/23 17:35 Dose: 1 mls/min Documented By: CAROLYN Famotidine (Pepcid 20mg Iv Push) 20 mg in 5 mls @ 2.5 mls/min IV NOW STA Stop: 08/13/23 13:25 Last Admin: 08/13/23 13:53 Dose: 2.5 mls/min Documented By: CAROLYN Ketorolac Tromethamine (Ketorolac Tromethamine 15 Mg/Ml Vial) 15 mg IV NOW ONE Stop: 08/13/23 11:44 Last Admin: 08/13/23 12:02 Dose: Not Given Documented By: MAXIMILIAN Ketorolac Tromethamine (Ketorolac Tromethamine 15 Mg/Ml Vial) 15 mg IV NOW ONE Stop: 08/13/23 12:59 Last Admin: 08/13/23 12:59 Dose: 15 mg Documented By: MAXIMILIAN Ketorolac Tromethamine (Ketorolac Tromethamine 15 Mg/Ml Vial) 15 mg IV Q6H [place] Stop: 08/18/23 17:59 Last Admin: 08/14/23 12:44 Dose: Not Given Documented By: Admin: 08/14/23 05:50 Dose: 15 mg Documented By: Admin: 08/13/23 23:15 Dose: 15 mg Documented By: Admin: 08/13/23 17:35 Dose: 15 mg Documented By: CAROLYN Lidocaine (Lidocaine 5% 1 Patch) 1 patch TD QA [place] Stop: 09/12/23 13:06 Last Admin: 08/14/23 08:25 Dose: 1 patch Documented By: Admin: 08/13/23 13:53 Dose: 1 patch Documented By: CAROLYN Losartan Potassium (Losartan Potassium 50 Mg Tab) [facility] [place] Stop: 09/12/23 11:14 Last Admin: 08/13/23 11:52 Dose: 100 mg Documented By: MAXIMILIAN Losartan Potassium (Losartan Potassium 50 Mg Tab) 100 mg PO DAILY [place] Stop: 09/13/23 08:59 Last Admin: 08/14/23 08:21 Dose: 100 mg Documented By: GIOVANI Methylprednisolone (Methylprednisolone 125 Mg/2 Ml Vial) 60 mg IV NOW STA Stop: 08/13/23 06:38 Last Admin: 08/13/23 07:05 Dose: 60 mg Documented By: MAXIMILIAN Miscellaneous (Remove Lidoderm Patch) 1 each N/A DAILY@2100 [facility] Stop: 09/12/23 20:59 Last Admin: 08/13/23 21:01 Dose: 1 each Documented By: JONATHAN Montelukast Sodium (Montelukast Sodium 10 Mg Tablet) 10 mg PO QPM [place] Stop: 09/12/23 20:59 Last Admin: 08/13/23 21:01 Dose: 10 mg Documented By: JONATHAN Ondansetron HCl (Ondansetron Inj 2 Mg/Ml 2 Ml Vial) 4 mg IV NOW STA Stop: 08/13/23 06:38 Last Admin: 08/13/23 07:05 Dose: 4 mg Documented By: MAXIMILIAN Polyethylene Glycol (Polyethylene (Miralax) 17 Gm Pack) 51 gm PO NOW STA Stop: 08/14/23 11:09 Last Admin: 08/14/23 11:45 Dose: 51 gm Documented By: GIOVANI Sennosides (Senna 8.6 Mg Tab) 8.6 mg PO QAM [facility] Stop: 09/12/23 13:06 Last Admin: 08/14/23 08:21 Dose: 8.6 mg Documented By: Admin: 08/13/23 13:53 Dose: 8.6 mg Documented By: CAROLYN Discharge Plan Visit Data Chief Complaint: Back Injury/Pain ED Provider: Nadine Hooker Discharge Problem: Lumbar radiculopathy, acute, Uncontrolled pain Patient Disposition: Admitted As Inpatient Discharge Instructions Interventions: ED Discharge Assessment Last Done: 08/13/23 12:56
[2023-08-13 07:51] LABS: Albumin Globulin Ratio 1.5 (0.9-2); Albumin Level 4.1 gm/dl (3.4-5.0); Bilirubin,Total 0.5 mg/dl (0.2-1.0); Calcium 9.1 mg/dl (8.6-10.3); Est GFR (African American) 86.8 ml/min; Est GFR (Non-African American) 74.9 ml/min; Globulin 2.7 gm/dl (2.5-4.0); Potassium 3.9 mmol/L (3.5-5.1); Total Protein 6.8 gm/dl (6.0-8.3)
[2023-08-13 07:56] LABS: Basophils # (auto) 0.04 K/uL (0.00-0.20); Basophils % (auto) 0.5 %; Eosinophils # (auto) 0.01 K/uL (0.00-0.50); Eosinophils % (auto) 0.1 %; Hematocrit (blood only) 41.2 % (42.0-52.0); Hemoglobin 14.3 g/dl (14.0-18.0); Immature Granulocytes # (auto) 0.03 K/uL (0.01-0.20); Immature Granulocytes % (auto) 0.4 %; Lymphocytes # (auto) 3.06 K/uL (1.20-3.40); Lymphocytes % (auto) 36.4 %; Mean Corpuscular Hemoglobin 31.4 pg (25.0-34.0); Mean Corpuscular Hgb Conc 34.7 g/dL (32.0-36.0); Mean Corpuscular Volume 90.4 fL (80.0-100.0); Mean Platelet Volume 9.4 fL (9.4-12.4); Monocytes # (auto) 0.55 K/uL (0.11-0.59); Monocytes % (auto) 6.5 %; Neutrophils # (auto) 4.72 K/uL (1.40-6.50); Neutrophils % (auto) 56.1 %; Platelet Count 297 K/uL (130-400); RDW Standard Deviation 39.8 fL (36.4-46.3); Red Blood Count 4.56 M/uL (4.70-6.10); White Blood Count 8.41 K/ul (4.8-10.8)
--- NOTE | 2023-08-13 11:24 | History & Physical Report ---
Date of Service August 13, 2023 Assessment & Plan (1) Lumbar radiculopathy, acute: Plan: Observation recommended as patient unable to get out of bed at home Acetaminophen 1g PO TID Toradol 15mg IV q6h, switch back to meloxicam once pain better controlled Oxycodone 5-10mg PO PRN for breakthrough pain, Dilaudid PRN if oxycodone not effective or unable to take PO Docusate and Senna for bowel regimen while on opiates, Miralax PRN Gabapentin 100mg PO TID, can up titrate as able Dexamethasone 4mg q6h IV Diazepam 5mg IV now, then 2mg q8h PRN for muscle spasm Famotidine 20mg PO daily GI prophylaxis while on Toradol and steroids Lidocaine patch Consult ortho spine and pain management PT/OT (2) Spinal stenosis: Plan: Not suspect to be causing his acute symptoms but noted on MRI (3) Hypertension: Plan: Did not take his morning medications on admission (4) Muscle spasm: Plan VTE Prophylaxis - Lovenox 40mg SQ daily Diet - regular Disposition - observation to med/surg Admission and Anticipated Discharge Date Admission Date: August 12, 2022 History of Present Illness Chief Complaint: Left leg numbness/pain/weakness Primary Care Provider: Carlos Alejandro DO Cruzito Hughes is a 73 year old male who presents to the ER with left sided radiculopathy. He reports symptoms started after waking up in the morning approximately 1 week ago. No fever or chills. 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 He was seen in the ER 2 days ago and started on Medrol Dosepak. He was given 5 oxycodone pills so only taking half a pill intermittently. He was told not to take NSAIDs while on steroids therefore is not taking these. He is not taking any acetaminophen. He reports not much effect from Flexeril. Severity of pain 10/10 at worst starting in lumbar spine with radiation over his anterior t high. Feels like the whole of his left leg is weak. The severity of pain is so bad at home that he has carely been out of bed for the last 2 days He has a prior diagnosis of lumbar spinal stenosis with prior cervical and lumbar spinal surgery in [address] Faria @ [facility]. Unclear what lumbar spinal surgery he had but no hardware placed in his back. He had total numbness bilaterally from his waist down prior to that surgery. While in the ER he is having severity 5/10 pain with intermittent muscle spasm causing this to be a lot worse. No bowel movement for the last 2 days and he feels constipated. No nausea or vomiting. Allergies Allergy/AdvReac Type Severity Reaction Status Date / Time cephalexin [From Keflex] Allergy Intermediate Hives Verified 08/13/23 08:08 cephalothin Allergy Intermediate Hives Verified 08/13/23 08:08 chloramphenicol Allergy Intermediate Hives Verified 08/13/23 08:08 pollen extracts Allergy Mild sneezing/watery Verified 08/13/23 08:08 eyes ragweed pollen Allergy Mild sneezing/watery Verified 08/13/23 08:08 eyes Home Medications Medication Instructions Recorded Confirmed Type fluticasone propionate 50 1 spray intranasal QPM #16 grams 02/04/21 08/13/23 Rx mcg/actuation nasal spray,suspension atenolol 25 mg tablet 25 mg PO DAILY #90 tabs 01/03/23 08/13/23 Rx losartan 100 mg tablet 100 mg PO DAILY #90 tabs 01/03/23 08/13/23 Rx amlodipine 5 mg tablet 5 mg PO DAILY #90 tabs 01/11/23 08/13/23 Rx montelukast 10 mg tablet 10 mg PO QPM #90 tabs 05/02/23 08/13/23 Rx rizatriptan 10 mg disintegrating See Rx Instructions PO .COMPLEX 05/19/23 08/13/23 Rx tablet #14 tabs cyclobenzaprine 10 mg tablet 10 mg PO TID PRN muscle spasm #21 08/10/23 08/13/23 Rx tabs goiamqw-cjuccxutvfxnd-vdoacycf 250 1 tab PO Q6H Facial Pain 08/13/23 08/13/23 History mg-250 mg-65 mg tablet (Excedrin Migraine) diphenhydramine 25 1 tab PO HS 08/13/23 08/13/23 History mg-acetaminophen 500 mg tablet (Tylenol PM Extra Strength) ibuprofen 200 mg tablet (Advil) 200 mg PO Q6H facial pain 08/13/23 08/13/23 History Past Med/Surg History Problem List (Updated 08/13/23 @ 12:08 by Noel Arceo MD) Muscle spasm Lumbar radiculopathy, acute Migraine without aura, not intractable Hypertension Dyslipidemia Prediabetes Spinal stenosis Anemia Lumbar spondylosis Migraine Medical History History of colon polyps Degenerative disc disease Glaucoma Allergic rhinitis due to pollen Surgical History History of lumbar surgery L4 (same time as Cervical spinal fusion) @ [facility] – [place], [place] History of open reduction and internal fixation (ORIF) procedure left shoulder, no hardware History of fusion of cervical spine (~2009) C4, C6---limited ROM from side to side History of appendectomy History of colonoscopy with polypectomy 04/2019 repeat 5 years Family History Father Diabetes Transient ischemic attack Parkinson's disease Stroke Mother Migraines Hypertension Other No family history of adverse response to anesthesia Denies family history of Ovarian cancer Prostate cancer Myocardial infarction Breast cancer Lung cancer Colorectal cancer Social History Smoking Status: Never smoker Second Hand Exposure: No (father smoked); Do You Dip or Chew Tobacco: No; Hx Alcohol Use: Yes Alcohol type: wine Alcohol Intake Frequency: 2-3 x/Week Hx Substance Use: No Preferred Language: Georgian Communication Ability: Effective Visual Impairment: Limited Hearing Ability: Normal Daycare Provider Required: No Beliefs That Will Affect Care: None marital status: Current Living Situation: Spouse current occupational status: retired How many Children do You have: 0 Feels Safe at Home: Yes Childhood Exposure to Second-Hand Smoke: Yes caffeine: Yes (coffee, tea ) Dental Care, Regularly: Yes Physical Activity Frequency: Daily Seatbelt Use: always Sunscreen Use: Yes Assistive Devices: Contacts and Glasses Review of Systems Review of Systems: All systems reviewed & are unremarkable except as noted in HPI & below Physical Exam Constitutional: WD/WN, vitals as above Respiratory: normal respiratory effort, lungs clear to auscultation Cardiovascular: RRR, no murmur, no edema Gastrointestinal (Abdomen): normal bowel sounds, soft, nontender, no hepatosplenomegaly Musculoskeletal: left 4/5 hip flexion, right 5/5 hip flex, knee flexion/extension 5/5 b/l, ankle dorsi/plantarflex 5/5, no sensory deficit left lumbar paraspinal tenderness Skin: no rashes, warm and dry Neurologic: moves all extremities and awake; not confused Psychiatric: A+Ox3, euthymic affect Results & Data Results & Data Vital Signs (Past 12 Hours) Vital Signs Temp Pulse Pulse Resp BP BP Pulse Ox 08/13/23 09:00 87 18 172/99 H 94 08/13/23 07:18 87 18 163/95 H 95 08/13/23 06:37 95 08/13/23 05:40 79 22 183/113 H 99 08/13/23 05:40 36.4 C L 79 22 183/113 H 99 O2 Del Method 08/13/23 09:00 Room Air 08/13/23 07:18 Room Air 08/13/23 06:37 Room Air 08/13/23 05:40 Room Air 08/13/23 05:40 Room Air Laboratory Results Abnormal lab results 08/13/23 Range/Units Unknown RBC 4.56 L (4.70-6.10) M/uL Hct 41.2 L (42.0-52.0) % BUN 27 H (6-23) mg/dl BUN/Creatinine Ratio 27.0 H (10-20) Glucose 103 H (70-99(Fasting)) mg/dl AST 12 L (13-39) U/L Diagnostic Findings MR lumbar spine wo con CLINICAL HISTORY: 73 years-old Male with LLE radiculopathy. Acute low back pain. COMPARISON: 01/02/2010. TECHNIQUE: Multiplanar, multi sequence MRI of the lumbar spine was performed without intravenous contrast. FINDINGS: Urinary bladder is markedly distended likely measuring over 20 cm in length. No acute fracture, subluxation or endplate erosion. There is mild nonspecific edema within the lower lumbar paraspinal musculature. Conus medullaris terminates at T12-L1. T12-L1: Mild spondylitic spurring with moderate facet arthrosis. No central canal or neural foraminal stenosis. L1-L2: Mild spondylotic spurring with moderate facet arthrosis. Central canal is patent. Mild bilateral foraminal narrowing. L2-L3: Mild spondylitic spurring. Ligamentum flavum thickening with severe facet arthrosis. Shortened pedicles. Central canal is patent. Mild bilateral foraminal narrowing. L3-L4: Mild intervertebral disc space narrowing with spondylitic spurring and small circumferential annular disc bulge/posterior disc osteophyte complex. Ligamentum flavum thickening with severe facet arthrosis and trace facet effusions. Shortened pedicles. Severe central canal stenosis with AP dimension of the thecal sac measuring approximately 4 mm, worsened from prior. Severe narrowing of the lateral recesses. Hfnqhpqf-le-dhgpgh left with moderate right foraminal narrowing. L4-L5: Izpe-nl-zdffeymq intervertebral disc space narrowing. Moderate spondylitic spurring with circumferential disc osteophyte complex. Advanced facet arthrosis with trace facet effusions. Severe facet arthrosis with AP dimension of the thecal sac measuring 4 mm. Severe narrowing of the lateral recesses. Severe bilateral foraminal narrowing. Findings have progressed from prior. L5-S1: Mild intervertebral disc space narrowing and spondylotic spurring with circumferential annular disc bulge. Ligamentum flavum thickening with advanced facet arthrosis. Mzsv-lc-pxrjgpmn central canal stenosis with AP dimension of the thecal sac measuring 8 mm. Moderate narrowing of the lateral recesses. Moderate bilateral foraminal narrowing. IMPRESSION: 1. No acute fracture, subluxation or endplate erosion. 2. Progressively worsened discogenic degeneration and facet arthrosis as above resulting in multilevel central canal and foraminal narrowing. 3. Markedly distended urinary bladder. Medications Administered ER medications given: Atenolol 25 mg. Losartan 100 mg p.o. Dilaudid 0.5 mg IV Ondansetron 4 mg IV Solu-Medrol 60 mg IV Amlodipine 5 mg p.o. Dilaudid 0.25 mg IV x 2 Code Status & VTE Plan Code Status Full VTE Prophylaxis Plan VTE Prophylaxis will be ordered: Yes PG Care Time/CCT Total # of Minutes Spent Total Time Spent with Patient: Total time spent is greater than 50% in coordination of care (as documented) at patient's floor/unit and/or counseling patient: Coding Level of Care Code 82326 INT INP/OBS CARE 2/55MIN Diagnoses Lumbar radiculopathy, acute M54.16 Spinal stenosis M48.00 Essential hypertension I10 Hypertension type: essential hypertension Muscle spasm M62.838 (3) Hypertension Hypertension type: essential hypertension Qualified Code(s): I10 - Essential (primary) hypertension
[2023-08-13] MEDS: ATENOLOL 25 MG TABLET PO SCH (11:52)
[2023-08-13] MEDS: LOSARTAN POTASSIUM 50 MG TAB PO SCH (11:52)
[2023-08-13] MEDS: amLODIPine BESYLATE 5 MG TAB PO ONE (11:52)
[2023-08-13] MEDS: ACETAMINOPHEN 1,000 MG/100 ML VIAL IV STA (11:53)
[2023-08-13] MEDS: diazePAM 5 MG/ML 10ML VIAL IV STA (11:53)
--- NOTE | 2023-08-13 11:53 | Magnetic Resonance Report ---
MR lumbar spine wo con CLINICAL HISTORY: 73 years-old Male with LLE radiculopathy. Acute low back pain. COMPARISON: 01/02/2010. TECHNIQUE: Multiplanar, multi sequence MRI of the lumbar spine was performed without intravenous cont rast. FINDINGS: Urinary bladder is markedly distended likely measuring over 20 cm in length. No acute fracture, sublu xation or endplate erosion. There is mild nonspecific edema within the lower lumbar paraspinal muscul ature. Conus medullaris terminates at T12-L1. T12-L1: Mild spondylitic spurring with moderate facet arthrosis. No central canal or neural foramina l stenosis. L1-L2: Mild spondylotic spurring with moderate facet arthrosis. Central canal is patent. Mild bilate ral foraminal narrowing. L2-L3: Mild spondylitic spurring. Ligamentum flavum thickening with severe facet arthrosis. Shortene d pedicles. Central canal is patent. Mild bilateral foraminal narrowing. L3-L4: Mild intervertebral disc space narrowing with spondylitic spurring and small circumferential annular disc bulge/posterior disc osteophyte complex. Ligamentum flavum thickening with severe facet arthrosis and trace facet effusions. Shortened pedicles. Severe central canal stenosis with AP dimens ion of the thecal sac measuring approximately 4 mm, worsened from prior. Severe narrowing of the late ral recesses. Pozxeacg-co-bheyeb left with moderate right foraminal narrowing. L4-L5: Uqdn-if-nuolvgzm intervertebral disc space narrowing. Moderate spondylitic spurring with circ umferential disc osteophyte complex. Advanced facet arthrosis with trace facet effusions. Severe face t arthrosis with AP dimension of the thecal sac measuring 4 mm. Severe narrowing of the lateral reces ses. Severe bilateral foraminal narrowing. Findings have progressed from prior. L5-S1: Mild intervertebral disc space narrowing and spondylotic spurring with circumferential annula r disc bulge. Ligamentum flavum thickening with advanced facet arthrosis. Tpwq-dm-cgkqbyjc central ca nal stenosis with AP dimension of the thecal sac measuring 8 mm. Moderate narrowing of the lateral re cesses. Moderate bilateral foraminal narrowing. IMPRESSION: 1. No acute fracture, subluxation or endplate erosion. 2. Progressively worsened discogenic degeneration and facet arthrosis as above resulting in multileve l central canal and foraminal narrowing. 3. Markedly distended urinary bladder. ACT 112: Negative or not required by law. The above report was generated using voice recognition software. It may contain grammatical, syntax o r spelling errors. Dictated: 08/13/2023 10:40 AM Transcribed: 08/13/2023 11:32 AM Mohinder [id number] [email or web address] Electronically signed by: Hussain Olivera M.D. 08/13/2023 11:50 AM
[2023-08-13] MEDS: KETOROLAC TROMETHAMINE 15 MG/ML VIAL IV ONE ×2 (12:02→12:59)
[2023-08-13] MEDS: LACTATED RINGER'S 1,000 ML IV ONE (12:02)
[2023-08-13 12:05] LABS: Magnesium 2.2 mg/dl (1.7-2.4)
[2023-08-13] MEDS: GABAPENTIN 100 MG CAP PO STA (12:42)
[2023-08-13] MEDS ORDERED: POLYETHYLENE (MIRALAX) 17 GM PACK PO PRN (13:07)
[2023-08-13] MEDS ORDERED: diazePAM 2 MG TABLET PO PRN (13:07)
[2023-08-13] MEDS ORDERED: MELATONIN 3 MG TAB PO PRN (13:07)
[2023-08-13] MEDS ORDERED: oxyCODONE HCL IR 5 MG TAB (IMMEDIATE RELEASE) PO PRN ×2 (13:07)
[2023-08-13] MEDS ORDERED: HYDROmorphone INJ 0.5 MG/0.5 ML SYR IV PRN (13:07)
[2023-08-13] MEDS: SENNA 8.6 MG TAB PO SCH (13:53)
[2023-08-13] MEDS: LIDOCAINE 5% 1 PATCH TD SCH (13:53)
[2023-08-13] MEDS: FAMOTIDINE 20MG IV PUSH 20 MG/5 ML SYR IV STA (13:53)
[2023-08-13] MEDS: KETOROLAC TROMETHAMINE 15 MG/ML VIAL IV SCH (17:35)
[2023-08-13] MEDS: dexAMETHasone 4 MG in SYRINGE 0 ML IV SCH (17:35)
[2023-08-13] MEDS ORDERED: DEXAMETHASONE SOD INJ 4 MG/ML VIAL IV SCH (18:00)
[2023-08-13] MEDS: DOCUSATE SODIUM 100 MG CAP PO SCH (21:00)
[2023-08-13] MEDS ORDERED: NON-FORMULARY MEDICATION (Diphenhydramine-Acetaminophen [Tylenol Pm Extra Strength] 25-500 PO SCH (21:00)
[2023-08-13] MEDS: FLUTICASONE PROPIONATE NA SPR 16 GM BTL NAE SCH (21:00)
[2023-08-13] MEDS: ACETAMINOPHEN 500 MG TAB PO SCH (21:01)
[2023-08-13] MEDS: MONTELUKAST SODIUM 10 MG TABLET PO SCH (21:01)
[2023-08-13] MEDS: GABAPENTIN 100 MG CAP PO SCH (21:01)
[2023-08-14 08:16] LABS: Hemoglobin 15.1 g/dl (14.0-18.0); Mean Corpuscular Hemoglobin 31.2 pg (25.0-34.0); Mean Corpuscular Hgb Conc 34.3 g/dL (32.0-36.0); Mean Corpuscular Volume 90.9 fL (80.0-100.0); Mean Platelet Volume 9.2 fL (9.4-12.4); Platelet Count 305 K/uL (130-400); RDW Coefficient of Variation 11.9 % (11.5-14.5); RDW Standard Deviation 39.8 fL (36.4-46.3); Red Blood Count 4.84 M/uL (4.70-6.10); White Blood Count 9.43 K/ul (4.8-10.8)
[2023-08-14] MEDS: ATENOLOL 25 MG TABLET PO SCH (08:19)
[2023-08-14] MEDS: amLODIPine BESYLATE 5 MG TAB PO SCH (08:19)
[2023-08-14] MEDS: FAMOTIDINE 20 MG TAB PO SCH (08:20)
[2023-08-14] MEDS: LOSARTAN POTASSIUM 50 MG TAB PO SCH (08:21)
[2023-08-14 08:28] LABS: Est GFR (African American) 85.7 ml/min; Potassium 4.8 mmol/L (3.5-5.1)
[2023-08-14 08:29] LABS: BUN Creatinine Ratio 35.6 (10-20); Calcium 9.6 mg/dl (8.6-10.3); Creatinine Clr Calc Pharmacy 78.2 ml/min
--- NOTE | 2023-08-14 09:49 | Hospitalist Progress Note ---
Date of Service August 14, 2023 Assessment & Plan (1) Lumbar radiculopathy, acute: Plan: Acute R lumbar radiculopathy in pt with chronic lumbar pain and previous fusion history MRI lumbar spine- worsened disc degeneration and facet arthrosis, central canal and foraminal narrowing Pain control -Acetaminophen 1g PO TID -Toradol 15mg IV q6h, switch back to meloxicam once pain better controlled -Oxycodone 5-10mg PO PRN for breakthrough pain, Dilaudid PRN if oxycodone not effective or unable to take PO - Docusate and Senna for bowel regimen while on opiates, Miralax PRN -Gabapentin 100mg PO TID, can uptitrate as able -Dexamethasone 4mg q6h IV due to radicular symptoms -Famotidine 20mg PO daily GI prophylaxis while on Toradol and steroids -Diazepam 5mg IV given on admission, 2mg q8h PRN for muscle spasm -Lidocaine patch Awaiting recommendations from orthopedics and pain management Pending PT/OT evaluations (2) Spinal stenosis: Plan: Noted on MRI (3) Hypertension: Plan: Elevated BP without concern of end organ damage Hypertensive urgency likely due to missed home medications + pain Resume home medications, BP is now improving (4) Muscle spasm: Plan: -See above (5) Bladder distension: Plan: -Markedly distended urinary bladder noted on MRI -Pt is voiding normally -PVR ordered Plan VTE Prophylaxis - Lovenox 40mg SQ daily Diet - regular Disposition - observation to medical/surgical Admission and Anticipated Discharge Date Admission Date: August 13, 2023 Subjective Acute events overnight- none. Pt examined at bedside. Reports no back pain at rest. His radicular symptoms are improving, no further L leg pain but pain still radiates to hip. Review of Systems Review of Systems: Per HPI/Subjective Physical Exam Constitutional: WD/WN, vitals as above Respiratory: normal respiratory effort, lungs clear to auscultation Cardiovascular: RRR, no murmur, no edema Gastrointestinal (Abdomen): Nontender over suprapubic space Musculoskeletal: Left 4/5 hip flexion, right 5/5 hip flexion, knee flexion/extension 5/5 b/l, ankle dorsi/plantarflex 5/5, no sensory deficit, no pain with L straight leg raise- range of 70 degrees Left lumbar paraspinal tenderness Skin: no rashes, warm and dry Neurologic: moves all extremities and awake; not confused Results & Data Results & Data Vital Signs (Past 12 Hours) Vital Signs Temp Pulse Resp BP Pulse Ox O2 Del Method 08/14/23 07:53 36.4 C L 72 16 175/79 H 95 Room Air (3) Hypertension Hypertension type: essential hypertension Qualified Code(s): I10 - Essential (primary) hypertension
--- NOTE | 2023-08-14 10:23 | Orthopedic Consultation ---
Date of Consultation August 14, 2023 Assessment & Plan (1) Neurogenic claudication due to lumbar spinal stenosis: Assessment recurrent lumbar spinal stenosis with herniating spinal process and radiculopathy. Plan I did have the opportunity review the patient's updated MRI lumbar spine. There is evidence of previous decompression centrally at L3-L4 L4-L5. Unfortunately L4-5 is reestablished fairly severe stenosis and facet hypertrophy with evidence of a foraminal extraforaminal disc herniation on the left. Plan at this point he is somewhat improved with bedrest and medications. He has been up and ambulating. I have outlined to the patient and his that he has severe spinal stenosis with neural compression and may ultimately require surgical intervention. They understand. This point it would like to continue with the medications and the outpatient physical therapy. I would like to see him in my office in the next 2 weeks to assess his progress. (2) Lumbar disc herniation with radiculopathy: History of Present Illness Reason for Consultation: Left leg radiculopathy Attending Physician: Angel Johnson MD History of Present Illness This is a very pleasant 73-year-old male who presents now for second time to the hospital with severe left leg radiculopathy. Symptoms involve the left buttock extending down to the knee and sometimes down to the calf. Right lower extremity asymptomatic. He denies any specific trauma fall or event that precipitated the symptoms. He does have a history of undergoing a two-level decompression in 2009. He been doing well until recently. Allergies Allergy/AdvReac Type Severity Reaction Status Date / Time cephalexin [From Keflex] Allergy Intermediate Hives Verified 08/13/23 08:08 cephalothin Allergy Intermediate Hives Verified 08/13/23 08:08 chloramphenicol Allergy Intermediate Hives Verified 08/13/23 08:08 pollen extracts Allergy Mild sneezing/watery Verified 08/13/23 08:08 eyes ragweed pollen Allergy Mild sneezing/watery Verified 08/13/23 08:08 eyes Home Medications Medication Instructions Recorded Confirmed Type fluticasone propionate 50 1 spray intranasal QPM #16 grams 02/04/21 08/13/23 Rx mcg/actuation nasal spray,suspension atenolol 25 mg tablet 25 mg PO DAILY #90 tabs 01/03/23 08/13/23 Rx losartan 100 mg tablet 100 mg PO DAILY #90 tabs 01/03/23 08/13/23 Rx amlodipine 5 mg tablet 5 mg PO DAILY #90 tabs 01/11/23 08/13/23 Rx montelukast 10 mg tablet 10 mg PO QPM #90 tabs 05/02/23 08/13/23 Rx rizatriptan 10 mg disintegrating See Rx Instructions PO .COMPLEX 05/19/2307/26 Rx tablet #14 tabs cyclobenzaprine 10 mg tablet 10 mg PO TID PRN muscle spasm #21 08/10/23 08/13/23 Rx tabs zbaxmax-gbqtcpnimclwm-dpuilfas 250 1 tab PO Q6H Facial Pain 08/13/23 08/13/23 History mg-250 mg-65 mg tablet (Excedrin Migraine) diphenhydramine 25 1 tab PO HS 08/13/23 08/13/23 History mg-acetaminophen 500 mg tablet (Tylenol PM Extra Strength) ibuprofen 200 mg tablet (Advil) 200 mg PO Q6H facial pain 08/13/23 08/13/23 History Patient History Medical History History of colon polyps Degenerative disc disease Glaucoma Allergic rhinitis due to pollen Surgical History History of lumbar surgery L4 (same time as Cervical spinal fusion) @ [facility] [place] History of open reduction and internal fixation (ORIF) procedure left shoulder, no hardware History of fusion of cervical spine (~2009) C4, C6---limited ROM from side to side History of appendectomy History of colonoscopy with polypectomy 04/2019 repeat 5 years Family History Father Diabetes Transient ischemic attack Parkinson's disease Stroke Mother Migraines Hypertension Other No family history of adverse response to anesthesia Denies family history of Ovarian cancer Prostate cancer Myocardial infarction Breast cancer Lung cancer Colorectal cancer Social History Smoking Status: Never smoker Second Hand Exposure: No (father smoked); Do You Dip or Chew Tobacco: No; Hx Alcohol Use: Yes Alcohol type: wine Alcohol Intake Frequency: 2-3 x/Week Hx Substance Use: No Preferred Language: Romansh Communication Ability: Effective Visual Impairment: Limited Hearing Ability: Normal Bioanalyst Required: No Beliefs That Will Affect Care: None marital status: Current Living Situation: Spouse current occupational status: retired How many Children do You have: 0 Other Information That Helps Us Care for You: No Feels Safe at Home: Yes Safety Concerns: Feels Safe At This Time Childhood Exposure to Second-Hand Smoke: Yes caffeine: Yes (coffee, tea ) Dental Care, Regularly: Yes Physical Activity Frequency: Daily Seatbelt Use: always Sunscreen Use: Yes Assistive Devices: None Physical Exam Physical Exam: On exam patient is comfortable in bed. He has reasonable is 5 out of 5 plantarflexion dorsiflexion quadriceps bilaterally. Modest tension signs straight leg raising on the left negative on the right. Deep and reflexes diminished. Sensory symmetric and intact. Results & Data Vital Signs (Past 12 Hours) Vital Signs Temp Pulse Resp BP Pulse Ox O2 Del Method 08/14/23 07:53 36.4 C L 72 16 175/79 H 95 Room Air
--- NOTE | 2023-08-14 11:18 | Discharge Summary ---
Date of Service August 14, 2023 Admission HPI Per Admitting Provider Cruzito Hughes is a 73 year old male who presents to the ER with left sided radiculopathy. He reports symptoms started after waking up in the morning approximately 1 week ago. No fever or chills. 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 He was seen in the ER 2 days ago and started on Medrol Dosepak. He was given 5 oxycodone pills so only taking half a pill intermittently. He was told not to take NSAIDs while on steroids therefore is not taking these. He is not taking any acetaminophen. He reports not much effect from Flexeril. Severity of pain 10/10 at worst starting in lumbar spine with radiation over his anterior thigh. Feels like the whole of his left leg is weak. The severity of pain is so bad at home that he has carely been out of bed for the last 2 days He has a prior diagnosis of lumbar spinal stenosis with prior cervical and lumbar spinal surgery in [address] Faria @ [facility]. Unclear what lumbar spinal surgery he had but no hardware placed in his back. He had total numbness bilaterally from his waist down prior to that surgery. While in the ER he is having severity 5/10 pain with intermittent muscle spasm causing this to be a lot worse. No bowel movement for the last 2 days and he feels constipated. No nausea or vomiting. Admission Exam Per Admitting Provider Constitutional: WD/WN, vitals as above Respiratory: normal respiratory effort, lungs clear to auscultation Cardiovascular: RRR, no murmur, no edema Gastrointestinal (Abdomen): normal bowel sounds, soft, nontender, no hepatosplenomegaly Musculoskeletal: left 4/5 hip flexion, right 5/5 hip flex, knee flexion/extension 5/5 b/l, ankle dorsi/plantarflex 5/5, no sensory deficit left lumbar paraspinal tenderness Skin: no rashes, warm and dry Neurologic: moves all extremities and awake; not confused Psychiatric: A+Ox3, euthymic affect Principal Diagnosis Lumbar radiculopathy Discharge Exam Constitutional WD/WN, vitals as above Respiratory normal respiratory effort, lungs clear to auscultation Cardiovascular RRR, no murmur, no edema Skin no rashes, warm and dry Neurologic moves all extremities and awake; not confused Discharge Data Allergies Allergy/AdvReac Type Severity Reaction Status Date / Time cephalexin [From Keflex] Allergy Intermediate Hives Verified 08/13/23 08:08 cephalothin Allergy Intermediate Hives Verified 08/13/23 08:08 chloramphenicol Allergy Intermediate Hives Verified 08/13/23 08:08 pollen extracts Allergy Mild sneezing/watery Verified 08/13/23 08:08 eyes ragweed pollen Allergy Mild sneezing/watery Verified 08/13/23 08:08 eyes Consultations 08/13/23 11:46 ED Decision to Admit Stat 08/13/23 13:07 Consult Orthopedic Spine Surgery Routine Consult Pain Management Routine Ordered Studies 08/13/23 06:38 MR lumbar spine wo con Stat Hospital Course (1) Lumbar radiculopathy, acute: Acute R lumbar radiculopathy in pt with chronic lumbar pain and previous fusion history MRI lumbar spine- worsened disc degeneration and facet arthrosis, central canal and foraminal narrowing Pain control while inpatient -Acetaminophen 1g PO TID -Toradol 15mg IV q6h -Oxycodone 5-10mg PO PRN for breakthrough pain, Dilaudid PRN -Gabapentin 100mg PO TID -Dexamethasone 4mg q6h IV due to radicular symptoms -Diazepam 5mg IV given on admission, 2mg q8h PRN for muscle spasm -Lidocaine patch Orthopedics consulted- may require surgical intervention in future, continue conservative management for now, f/u in 2 weeks Discharged with pain regimen below -Tylenol 1g q8h + ibuprofen 400 mg q8h -Home gabapentin daily -Prednisone burst for 5 days total -Oxycodone 5 mg PRN x12 tabs (2) Spinal stenosis: Noted on MRI (3) Hypertension: Elevated BP without concern of end organ damage Hypertensive urgency likely due to missed home medications + pain Resume home medications, BP is now improving at time of discharge (4) Muscle spasm: -See above (5) Bladder distension: -Markedly distended urinary bladder noted on MRI -Pt is voiding normally -PVR ordered for further evaluation- normal Total Time Total Time Spent Total Time Spent (In Minutes): 40 Discharge Plan Discharge Items Patient Disposition: Home - Self-Care Reason For Visit: ACUTE LUMBAR RADICULOPATHY Discharge Diagnosis: Lumbar radiculopathy Activity: Resume your previous activity Non-emergency contact: Primary Care Provider Call non-emergency contact if: your symptoms worsen Follow-up/Referrals: Eduardo Mckeon DO [Surgeon] - (F/u in 2 weeks PLEASE CONTACT THE OFFICE TO MAKE A HOSPITAL FOLLOW UP [phone]) Carlos Alejandro DO [Primary Care Provider] - 08/23/23 11:00 am (APT W/ [employer] ) Diet: Regular Addtl Attending Provider Instructions: You were admitted to the hospital for back pain. This was due to your progressive arthritis and stenosis of the lumbar spine. A discharge summary will be sent to your primary care physician to ensure continuity of care. Please bring this discharge summary with you to your next office appointment so that your provider can review it at that time. Follow-up appointments: - Make a follow-up appointment with your PCP within the next week. It is very important that you follow up with them shortly after discharge from the hospital. - We have requested a follow up in [address] Mckeon. You should receive a call within the next 2 weeks to confirm the date and time of the appointment. Medications: Your medication list has been reviewed and reconciled upon discharge to ensure accuracy and continuity of care. An updated list of all your medications is included with your hospital discharge paperwork. Please review this list closely, and make note of any changes. -We recommend taking Tylenol 1000 mg every 8 hours for pain along with your usual gabapentin. You can combine Tylenol with ibuprofen/Advil 400 mg. Please take this with food. -We sent a new medication called prednisone to the pharmacy. Take prednisone 40 mg daily for the next 4 days to help with the acute back pain. Please take this with food and also take Pepcid/famotidine over the counter medication to reduce stomach upset from the medication. -We have sent oxycodone to the pharmacy as well. Take oxycodone for severe pain breakthroughs. Take your medications as instructed; do not skip a dose of your medicines. Make sure all of your doctors know every medicine you are taking (including ppey-wqe-eqgdqih medicines, vitamins, and supplements). Call your primary care provider before taking any new medicines (including llwp-ldr-qitiait medicines, vitamins, and supplements), because some of these may interact with your current medications, or may make your symptoms worse. Tell your primary care provider if you cannot afford your medications. CALL 911 OR GO TO THE EMERGENCY DEPARTMENT if you experience any of the following: - Sudden, severe abdominal pain or nausea/vomiting - Severe chest pain, or chest pain that radiates (moves) to your jaw or arm - Sudden, severe shortness of breath or difficulty breathing Thank you for allowing us to participate in your care Pending Studies at Discharge: No Stand-Alone Forms: My [facility] Medications and DC Order Prescriptions: New prednisone 20 mg tablet 40 mg PO DAILY 4 Days Qty: 8 0RF Rx Instructions: Take prednisone starting tomorrow 08/14- 2 tabs daily for 4 days oxycodone 5 mg tablet 5 mg PO Q6H PRN (Reason: pain) Qty: 16 0RF Continued atenolol 25 mg tablet 25 mg PO DAILY Qty: 90 3RF losartan 100 mg tablet 100 mg PO DAILY Qty: 90 3RF montelukast 10 mg tablet 10 mg PO QPM Qty: 90 3RF rizatriptan 10 mg tablet,disintegrating See Rx Instructions PO .COMPLEX Qty: 14 3RF Rx Instructions: take 1 tab at onset of headache; if no relief may repeat 1 tab after at least 2 hrs; max = 3 tabs/24 hr PO cyclobenzaprine 10 mg tablet 10 mg PO TID PRN (Reason: muscle spasm) Qty: 21 0RF fluticasone propionate 50 mcg/actuation spray,suspension 1 spray intranasal QPM Qty: 16 3RF amlodipine 5 mg tablet 5 mg PO DAILY Qty: 90 3RF ibuprofen [Advil] 200 mg Tablet 200 mg PO Q6H Tylenol PM Extra Strength 25-500 mg Tablet 1 tab PO HS Excedrin Migraine 250-250-65 mg Tablet 1 tab PO Q6H Discharge Orders: Discharge Order (Routine); Ordered 08/14/23 Ordered By: Lola Hernandez/Other Patient Handouts: Back Care Every Day Admission Data Admit Date/Time: 08/13/23 12:03 Attending Provider: Angel Johnson Admit Provider: Noel Arceo Primary Care Provider: Carlos Alejandro Other Providers: Noel Arceo; Eduardo Mckeon Upendra Other Interventions: Discharge Summary Assessment (RN) Last Done: 08/14/23 13:56 Supervising Physician Co-Signing Physician Notes Attending attestation Pt seen and examined in concert with Dr. Babin. In agreement with the documented findings as noted in the resident documentation with any exceptions or additions as noted here. Significant improvement in symptoms since administration of steroid bolus and pain management, new improved past baseline. On examination, S1/S2 nl RRR no MCG. CTAB. Abd NT/ND BS+ve Lumbar radiculopathy, right, acute, with chronic LBP - ortho and pain management consult - for outpatient injection management per ortho spine. Will discharge on pain control as noted above. Else see resident documentation as noted. Total attending physician time spent with this patient's care on the day of discharge: 35 minutes.
[2023-08-14] MEDS: POLYETHYLENE (MIRALAX) 17 GM PACK PO STA (11:45)
== END 2023-08-14 14:32 | disposition home or self-care (01) ==
LOC: ED 05:41 → 3N 05:41 → SUATTDRO 12:03 → 3N 12:56

== ENCOUNTER 2023-11-01 05:42 | Inpatient (IN) ==
--- NOTE | 2023-10-04 10:34 | PAT Medication Instructions ---
Medication Instructions Date of Service October 04, 2023 Home Medications Medication Instructions Recorded fluticasone propionate 50 1 spray intranasal QPM #16 grams 02/04/21 mcg/actuation nasal spray,suspension montelukast 10 mg tablet 10 mg PO QPM #90 tabs 05/02/23 cyclobenzaprine 10 mg tablet 10 mg PO TID PRN muscle spasm #21 08/10/23 tabs oxycodone 5 mg tablet 5 mg PO Q6H PRN pain #16 tabs 08/14/23 gabapentin 300 mg capsule 300 mg PO TID #90 caps 08/15/23 oxycodone-acetaminophen 5 mg-325 1 tab PO BID #20 tabs 08/15/23 mg tablet (Percocet) hydrocodone 5 mg-acetaminophen 325 1 tab PO BID PRN pain #30 tabs 08/26/23 mg tablet Medication List: fluticasone propionate 50 mcg/actuation nasal spray,suspension 1 spray intranasal QPM montelukast 10 mg tablet 10 mg PO QPM cyclobenzaprine 10 mg tablet 10 mg PO TID PRN muscle spasm mympbwl-ycpymucdamvsw-lmkteoqq 250 mg-250 mg-65 mg tablet (Excedrin Migraine) 1 tab PO Q6H PRN Pain oxycodone 5 mg tablet 5 mg PO Q6H PRN pain cholecalciferol (vitamin D3) 50 mcg (2,000 unit) capsule 50 mcg PO QAM fexofenadine 180 mg tablet (Franchesca Allergy) 180 mg PO QPM gabapentin 300 mg capsule 300 mg PO TID latanoprost 0.005 % eye drops 1 drp ophthalmic (eye) QPM magnesium 500 mg PO QPM meloxicam 15 mg tablet 15 mg PO QAM Pain multivitamin 1 tab PO QAM oxycodone-acetaminophen 5 mg-325 mg tablet (Percocet) 1 tab PO BID pseudoephedrine HCl 30 mg tablet (Sudafed) 30 mg PO Q4H PRN Sinus Symptoms hydrocodone 5 mg-acetaminophen 325 mg tablet 1 tab PO BID PRN pain Leg Cramps Pm 1 tab PO HS Super Beets 2 gummy PO QAM amlodipine 5 mg tablet 5 mg PO QAM atenolol 25 mg tablet 25 mg PO QAM coenzyme Q10 100 mg capsule (Co Q-10) 100 mg PO QAM glucosamine-chondroitin 250 mg-200 mg tablet (Osteo Bi-Flex) 1 tab PO BID losartan 100 mg tablet 100 mg PO QAM polyethylene glycol 3350 17 gram/dose oral powder (Miralax) 17 g PO DAILY PRN Constipation rizatriptan 10 mg disintegrating tablet 10 mg PO UD PRN migraines MEDICATION INSTRUCTIONS: Continue as directed latanoprost 0.005 % eye drops 1 drp ophthalmic (eye) QPM fluticasone propionate 50 mcg/actuation nasal spray,suspension 1 spray intranasal QPM ' ASK your surgeon for instructions hfpcczt-papknflsnbwav-gzvgwtqs 250 mg-250 mg-65 mg tablet (Excedrin Migraine) 1 tab PO Q6H PRN Pain meloxicam 15 mg tablet 15 mg PO QAM Pain STOP taking 2 weeks before surgery coenzyme Q10 100 mg capsule (Co Q-10) 100 mg PO QAM glucosamine-chondroitin 250 mg-200 mg tablet (Osteo Bi-Flex) 1 tab PO BID Leg Cramps Pm 1 tab PO HS Super Beets 2 gummy PO QAM DO NOT take the morning of surgery multivitamin 1 tab PO QAM losartan 100 mg tablet 100 mg PO QAM polyethylene glycol 3350 17 gram/dose oral powder (Miralax) 17 g PO DAILY PRN Constipation cholecalciferol (vitamin D3) 50 mcg (2,000 unit) capsule 50 mcg PO QAM pseudoephedrine HCl 30 mg tablet (Sudafed) 30 mg PO Q4H PRN Sinus Symptoms Take morning of surgery With a small sip of water, OTHERWISE NOTHING TO EAT OR DRINK AFTER MIDNIGHT: amlodipine 5 mg tablet 5 mg PO QAM atenolol 25 mg tablet 25 mg PO QAM cyclobenzaprine 10 mg tablet 10 mg PO TID PRN muscle spasm oxycodone 5 mg tablet 5 mg PO Q6H PRN pain gabapentin 300 mg capsule 300 mg PO TID oxycodone-acetaminophen 5 mg-325 mg tablet (Percocet) 1 tab PO BID hydrocodone 5 mg-acetaminophen 325 mg tablet 1 tab PO BID PRN pain rizatriptan 10 mg disintegrating tablet 10 mg PO UD PRN migraines Take evening before surgery magnesium 500 mg PO QPM montelukast 10 mg tablet 10 mg PO QPM fexofenadine 180 mg tablet (Franchesca Allergy) 180 mg PO QPM pseudoephedrine HCl 30 mg tablet (Sudafed) 30 mg PO Q4H PRN Sinus Symptoms cyclobenzaprine 10 mg tablet 10 mg PO TID PRN muscle spasm oxycodone 5 mg tablet 5 mg PO Q6H PRN pain gabapentin 300 mg capsule 300 mg PO TID oxycodone-acetaminophen 5 mg-325 mg tablet (Percocet) 1 tab PO BID hydrocodone 5 mg-acetaminophen 325 mg tablet 1 tab PO BID PRN pain rizatriptan 10 mg disintegrating tablet 10 mg PO UD PRN migraines Other Notes If you have any questions please call us at [phone] or [phone] or [phone] or [phone]
--- NOTE | 2023-10-10 13:02 | Anesthesiology Consultation ---
Date of Service October 10, 2023 Assessment & Plan (1) Encounter for pre-operative examination: - Check BSG AM DOS - Infectious disease screening: Per assessment on 10/10/23: No known recent infectious disease contacts or current infectious disease symptoms. - Possible difficult intubation: Decreased cervical extension/prior cervical fusion Chart Review Chart Review: Acceptable Risk for Surgery and Patient seen in Pre Admission Testing Teaching & Discussion Pre-Anesthesia Teaching/Discussion Notes: Instructed NPO after midnight before surgery,except medications with 15 cc of water. Medication instructions provided according to the PAT guidelines. History Surgery Operation Date: 11/01/23 07:15 Proposed Procedures p L3-L4, L4-L5 Lateral Lumbar Interbody Fusion with Interbody Cage and Posterior Instrumentation, Spinal Cord Monitoring - Finesse Cueva MD Height/Weight Height: 5 ft 10 in Weight: 100.2 kg Allergies Allergy/AdvReac Type Severity Reaction Status Date / Time cephalexin [From Keflex] Allergy Intermediate Hives Verified 11/01/23 06:04 cephalothin Allergy Intermediate Hives Verified 11/01/23 06:04 chloramphenicol Allergy Intermediate Hives Verified 11/01/23 06:04 pollen extracts Allergy Mild sneezing/watery Verified 11/01/23 06:04 eyes ragweed pollen Allergy Mild sneezing/watery Verified 11/01/23 06:04 eyes Medications Home Medications Medication Instructions Recorded Confirmed Last Taken fluticasone propionate 50 1 spray intranasal QPM #16 grams 02/04/21 11/01/23 10/31/23 22:00 mcg/actuation nasal spray,suspension montelukast 10 mg tablet 10 mg PO QPM #90 tabs 05/02/23 11/01/23 10/31/23 22:00 cyclobenzaprine 10 mg tablet 10 mg PO TID PRN muscle spasm #21 08/10/23 11/01/23 10/31/23 10:30 tabs msrmcyb-fyihcsacaunmi-gqmjthof 250 1 tab PO Q6H PRN Pain 08/13/23 11/01/23 08/12/23 mg-250 mg-65 mg tablet (Excedrin Migraine) oxycodone 5 mg tablet 5 mg PO Q6H PRN pain #16 tabs 08/14/23 11/01/23 10/28/23 12:00 cholecalciferol (vitamin D3) 50 50 mcg PO QAM 08/15/23 11/01/23 Unknown mcg (2,000 unit) capsule fexofenadine 180 mg tablet 180 mg PO QPM 08/15/23 11/01/23 10/31/23 22:00 (Franchesca Allergy) gabapentin 300 mg capsule 300 mg PO TID #90 caps 08/15/23 11/01/23 10/31/23 22:00 latanoprost 0.005 % eye drops 1 drp ophthalmic (eye) QPM 08/15/23 11/01/23 10/31/23 22:00 magnesium 500 mg PO QPM 08/15/23 11/01/23 10/31/23 12:00 meloxicam 15 mg tablet 15 mg PO QAM Pain 08/15/23 11/01/23 Unknown multivitamin 1 tab PO QAM 08/15/23 11/01/23 Unknown oxycodone-acetaminophen 5 mg-325 1 tab PO BID #20 tabs 08/15/23 11/01/23 Unknown mg tablet (Percocet) pseudoephedrine HCl 30 mg tablet 30 mg PO Q4H PRN Sinus Symptoms 08/15/23 11/01/23 10/28/23 07:00 (Sudafed) hydrocodone 5 mg-acetaminophen 325 1 tab PO BID PRN pain #30 tabs 08/26/23 11/01/23 Unknown mg tablet Leg Cramps Pm 1 tab PO HS 09/28/23 11/01/23 Unknown Super Beets 2 gummy PO QAM 09/28/23 11/01/23 Unknown amlodipine 5 mg tablet 5 mg PO QAM 09/28/23 11/01/23 11/01/23 05:00 atenolol 25 mg tablet 25 mg PO QAM 09/28/23 11/01/23 11/01/23 05:00 coenzyme Q10 100 mg capsule (Co 100 mg PO QAM 09/28/23 11/01/23 Unknown Q-10) glucosamine-chondroitin 250 mg-200 1 tab PO BID 09/28/23 11/01/23 Unknown mg tablet (Osteo Bi-Flex) losartan 100 mg tablet 100 mg PO QAM 09/28/23 11/01/23 10/31/23 07:00 polyethylene glycol 3350 17 17 g PO DAILY PRN Constipation 09/28/23 11/01/23 10/31/23 07:00 gram/dose oral powder (Miralax) rizatriptan 10 mg disintegrating 10 mg PO UD PRN migraines 09/28/23 11/01/23 Unknown tablet Active Medications Generic Name Dose Route Start Last Admin Trade Name Freq PRN Reason Stop Dose Admin Lactated Ringer's 1,000 mls @ 15 mls/hr 11/01/23 06:00 11/01/23 06:25 Lr IV 11/02/23 05:59 15 mls/hr .Q24H SYDNEY Administration Lactated Ringer's 1,000 mls @ 60 mls/hr 11/01/23 06:00 11/01/23 06:28 Lr IV 11/01/23 22:39 Not Given .[id number] SYDNEY Past Medical History Medical History Allergic rhinitis due to pollen Degenerative disc disease Dyslipidemia Per records Glaucoma History of anemia History of colon polyps Hx of melanoma of skin Hx of migraines Hypertension Neurogenic claudication due to lumbar spinal stenosis Prediabetes Per records Spinal stenosis "Severe" L3-4, L4-5 Exercise / Class Metabolic Activity II 4-5 Yardwork/Stairs/Walk up hill (one FS: No CP, no SOB) Past Family History Family History Father Diabetes Transient ischemic attack Parkinson's disease Stroke Mother Migraines Hypertension Other No family history of adverse response to anesthesia Denies family history of Ovarian cancer Prostate cancer Myocardial infarction Breast cancer Lung cancer Colorectal cancer Past Surgical History Surgical History History of appendectomy History of colonoscopy with polypectomy 04/2019, repeat 5 years History of fusion of cervical spine (~2009) C4, C6 History of lumbar surgery 2010, L4 (same time as Cervical spinal fusion) @ [facility] [place] History of open reduction and internal fixation (ORIF) procedure left shoulder, no hardware Hx of melanoma excision back Past Anesthesia History No Hx of Anesthesia Complications and No Family Hx of Anesthesia Complications History of PONV No Hx of Motion Sickness and History of PONV (Remote hx 1959/, patient notes ether reaction post-op nausea. No issue with subsequent/more recent surgery/anesthesia.) Social History Smoking Status: Never smoker Do You Dip or Chew Tobacco: No Hx Alcohol Use: Yes Alcohol type: wine alcohol intake frequency: a few times a week Hx Substance Use: No substance use type: does not use Review of Systems Patient denies chest pain, shortness of breath, dyspnea on exertion, fever, chills, cough, wheezing, palpitations. Physical Exam Vital Signs Last Vital Signs Temp 36.7 C 11/01/23 05:58 Pulse 62 11/01/23 05:58 Resp 20 11/01/23 05:58 BP 167/96 H 11/01/23 05:58 BP 120/76 P 55 TEMP 98.4 SP02 96%RA RESP 16 Physical Decreased cervical extension range of motion. Full TMJ range of motion. TMD > 3.5 finger breaths Mallampati Score II Dentition: intact, crowns (molars) Lungs: clear throughout to auscultation Cardiac: regular rate and rhythm, no murmurs noted Spine: normal Carotid arteries: negative bruit Extremities: no LE edema Lab Results Anesthesia Preop Results Results Anesthesia Widget: WBC 5.20 K/ul (4.8-10.8) 10/10/23 Hgb 13.1 g/dl (14.0-18.0) L 10/10/23 Hct 39.1 % (42.0-52.0) L 10/10/23 Plt 235 K/uL (130-400) 10/10/23 Na 138 mmol/L (136-145) 10/10/23 K 4.4 mmol/L (3.5-5.1) 10/10/23 Cl 103 mmol/L (98-107) 10/10/23 CO2 28 mmol/L (21-32) 10/10/23 BUN 17 mg/dl (6-23) 10/10/23 Creat 0.95 mg/dl (0.6-1.4) 10/10/23 Glucose Level 94 mg/dl (70-99(Fasting)) 10/10/23 POC Glucose 105 mg/dl (70-99) H 11/01/23 PT 10.2 Seconds (9.0-12.0) 10/10/23 PTT 26 Seconds (21-31) 10/10/23 INR 0.9 (0.9-1.1) 10/10/23 HA1c 6.1 % (4.5-5.6) H 10/10/23 Blood Type A Positive 10/10/23 Antibody Screen NEGATIVE 10/10/23 Testing Laboratory Results 11/01/23 06:09 POC Glucose 105 H Electrocardiogram Date: 12/23/22 Findings: + NSR @ (64) Chest X-Ray Date: 10/10/23 FINDINGS: PA and lateral chest radiographs are compared to study dated 06/12/2014. Correlation is made with chest CT dated 02/09/2011. The cardiomediastinal silhouette is top normal for projection noting atherosclerotic calcification of the thoracic aorta. There is mild bibasilar atelectasis. The lungs and pleural spaces are otherwise clear. There is no pneumothorax. The skeletal structures are osteopenic. The bony thorax appears intact. Fusion hardware is seen in the lower cervical spine. Degenerative change is seen in the thoracic region. IMPRESSION: No active disease in the chest.
[2023-11-01] MEDS: LR 15ML/HR IV SCH (06:25)
[2023-11-01] MEDS: LR 60ML/HR IV SCH (06:28)
--- NOTE | 2023-11-01 06:47 | History & Physical Bridge Note ---
Date of Service November 01, 2023 History & Physical Bridge Note I have examined the patient, reviewed the History & Physical and in the interval since the performance of the History & Physical I have noted the following changes of clinical significance: no changes noted
[2023-11-01] MEDS ORDERED: MIDAZOLAM HCL 1 MG/ML 2ML VIAL ONE (06:56)
[2023-11-01] MEDS ORDERED: fentaNYL citrate PF 100 MCG/2 ML VIAL ONE ×2 (06:56→09:07)
--- NOTE | 2023-11-01 06:56 | Anesthesiology Consultation ---
Date of Service November 01, 2023 History Surgery Operation Date: 11/01/23 07:15 Proposed Procedures p L3-L4, L4-L5 Lateral Lumbar Interbody Fusion with Interbody Cage and Posterior Instrumentation, Spinal Cord Monitoring - Finesse Cueva MD Height/Weight Height: 5 ft 10 in Weight: 100.1 kg Allergies Allergy/AdvReac Type Severity Reaction Status Date / Time cephalexin [From Keflex] Allergy Intermediate Hives Verified 11/01/23 06:04 cephalothin Allergy Intermediate Hives Verified 11/01/23 06:04 chloramphenicol Allergy Intermediate Hives Verified 11/01/23 06:04 pollen extracts Allergy Mild sneezing/watery Verified 11/01/23 06:04 eyes ragweed pollen Allergy Mild sneezing/watery Verified 11/01/23 06:04 eyes Medications Home Medications Medication Instructions Recorded Confirmed Last Taken fluticasone propionate 50 1 spray intranasal QPM #16 grams 02/04/21 11/01/23 10/31/23 22:00 mcg/actuation nasal spray,suspension montelukast 10 mg tablet 10 mg PO QPM #90 tabs 05/02/23 11/01/23 10/31/23 22:00 cyclobenzaprine 10 mg tablet 10 mg PO TID PRN muscle spasm #21 08/10/23 11/01/23 10/31/23 10:30 tabs gyguhhz-rurrgbiwlloii-zfecqxgh 250 1 tab PO Q6H PRN Pain 08/13/23 11/01/23 08/12/23 mg-250 mg-65 mg tablet (Excedrin Migraine) oxycodone 5 mg tablet 5 mg PO Q6H PRN pain #16 tabs 08/14/23 11/01/23 10/28/23 12:00 cholecalciferol (vitamin D3) 50 50 mcg PO QAM 08/15/23 11/01/23 Unknown mcg (2,000 unit) capsule fexofenadine 180 mg tablet 180 mg PO QPM 08/15/23 11/01/23 10/31/23 22:00 (Franchesca Allergy) gabapentin 300 mg capsule 300 mg PO TID #90 caps 08/15/23 11/01/23 10/31/23 22:00 latanoprost 0.005 % eye drops 1 drp ophthalmic (eye) QPM 08/15/23 11/01/23 10/31/23 22:00 magnesium 500 mg PO QPM 08/15/23 11/01/23 10/31/23 12:00 meloxicam 15 mg tablet 15 mg PO QAM Pain 08/15/23 11/01/23 Unknown multivitamin 1 tab PO QAM 08/15/23 11/01/23 Unknown oxycodone-acetaminophen 5 mg-325 1 tab PO BID #20 tabs 08/15/23 11/01/23 Unknown mg tablet (Percocet) pseudoephedrine HCl 30 mg tablet 30 mg PO Q4H PRN Sinus Symptoms 08/15/23 11/01/23 10/28/23 07:00 (Sudafed) hydrocodone 5 mg-acetaminophen 325 1 tab PO BID PRN pain #30 tabs 08/26/23 11/01/23 Unknown mg tablet Leg Cramps Pm 1 tab PO HS 09/28/23 11/01/23 Unknown Super Beets 2 gummy PO QAM 09/28/23 11/01/23 Unknown amlodipine 5 mg tablet 5 mg PO QAM 09/28/23 11/01/23 11/01/23 05:00 atenolol 25 mg tablet 25 mg PO QAM 09/28/23 11/01/23 11/01/23 05:00 coenzyme Q10 100 mg capsule (Co 100 mg PO QAM 09/28/23 11/01/23 Unknown Q-10) glucosamine-chondroitin 250 mg-200 1 tab PO BID 09/28/23 11/01/23 Unknown mg tablet (Osteo Bi-Flex) losartan 100 mg tablet 100 mg PO QAM 09/28/23 11/01/23 10/31/23 07:00 polyethylene glycol 3350 17 17 g PO DAILY PRN Constipation 09/28/23 11/01/23 10/31/23 07:00 gram/dose oral powder (Miralax) rizatriptan 10 mg disintegrating 10 mg PO UD PRN migraines 09/28/23 11/01/23 Unknown tablet Active Medications Generic Name Dose Route Start Last Admin Trade Name Freq PRN Reason Stop Dose Admin Lactated Ringer's 1,000 mls @ 15 mls/hr 11/01/23 06:00 11/01/23 06:25 Lr IV 11/02/23 05:59 15 mls/hr .Q24H SYDNEY Administration Lactated Ringer's 1,000 mls @ 60 mls/hr 11/01/23 06:00 11/01/23 06:28 Lr IV 11/01/23 22:39 Not Given .[id number] SYDNEY NPO Date Last Intake of Fluids: 10/31/23 Time Last Intake of Fluids: 22:00 Date Last Intake of Solids: 10/31/23 Time Last Intake of Solids: 22:00 Past Medical History Medical History Allergic rhinitis due to pollen Degenerative disc disease Dyslipidemia Per records Glaucoma History of anemia History of colon polyps Hx of melanoma of skin Hx of migraines Hypertension Neurogenic claudication due to lumbar spinal stenosis Prediabetes Per records Spinal stenosis "Severe" L3-4, L4-5 Past Family History Family History Father Diabetes Transient ischemic attack Parkinson's disease Stroke Mother Migraines Hypertension Other No family history of adverse response to anesthesia Denies family history of Ovarian cancer Prostate cancer Myocardial infarction Breast cancer Lung cancer Colorectal cancer Past Surgical History Surgical History History of appendectomy History of colonoscopy with polypectomy 04/2019, repeat 5 years History of fusion of cervical spine (~2009) C4, C6 History of lumbar surgery 2010, L4 (same time as Cervical spinal fusion) @ [facility] – [place] History of open reduction and internal fixation (ORIF) procedure left shoulder, no hardware Hx of melanoma excision back Social History Smoking Status: Never smoker Do You Dip or Chew Tobacco: No Hx Alcohol Use: Yes Alcohol type: wine alcohol intake frequency: a few times a week Hx Substance Use: No substance use type: does not use Physical Exam Vital Signs Last Vital Signs Temp 36.7 C 11/01/23 05:58 Pulse 62 11/01/23 05:58 Resp 20 11/01/23 05:58 BP 167/96 H 11/01/23 05:58 Testing Laboratory Results 11/01/23 06:09 POC Glucose 105 H
[2023-11-01] MEDS ORDERED: DROPERIDOL 5 MG/2 ML VIAL IV PRN (06:57)
[2023-11-01] MEDS ORDERED: HYDROmorphone INJ 2 MG/ML SYR/VIAL IV PRN (06:57)
[2023-11-01] MEDS ORDERED: ATROPINE SULFATE 0.1 MG/ML 10ML SYR IV PRN (06:57)
[2023-11-01] MEDS ORDERED: ePHEDrine sulfate 50 MG/ML AMP IV PRN (06:57)
[2023-11-01] MEDS ORDERED: DexMEDEtomidine HCL IV 100 MCG/ML VIAL IV ONE (07:02)
[2023-11-01] MEDS ORDERED: KETAMINE HCL 10MG/ML SYR ONE (07:31)
[2023-11-01] MEDS ORDERED: PROPOFOL IV EMULSION 10 MG/ML 20 ML VIAL IV ONE ×3 (08:00→09:42)
[2023-11-01] MEDS ORDERED: ONDANSETRON INJ 2 MG/ML 2 ML VIAL ONE (08:00)
[2023-11-01] MEDS: ceFAZolin 2000MG 2,000 MG/15 ML SYR IV SCH (08:00)
[2023-11-01] MEDS ORDERED: LIDOCAINE 2% 2 ML VIAL/AMP(20MG/ML) INFIL ONE (08:00)
[2023-11-01] MEDS ORDERED: DEXAMETHASONE SOD INJ 4 MG/ML VIAL ONE (08:00)
[2023-11-01] MEDS ORDERED: SUCCINYLCHOLINE CHLORIDE 20 MG/ML 10 ML VIAL IV ONE (08:00)
[2023-11-01] MEDS ORDERED: ROCURONIUM BROMIDE 10 MG/ML 5 ML VIAL IV ONE (08:00)
[2023-11-01] MEDS: VANCOMYCIN HCL 1000MG/20ML VIAL ONE (08:39)
[2023-11-01] MEDS ORDERED: GLYCOPYRROLATE 0.2 MG/ML VIAL ONE (09:36)
[2023-11-01] MEDS ORDERED: ePHEDrine sulfate 50 MG/5 ML SYR ONE (09:36)
[2023-11-01] MEDS ORDERED: PHENYLEPHRINE 100MCG/ML 10ML SYR IV ONE (09:37)
[2023-11-01] MEDS: THROMBIN 5000 UNITS KIT ONE (10:30)
[2023-11-01] MEDS: GELATIN SPONGE 12-7MM ONE (10:31)
[2023-11-01] MEDS ORDERED: ceFAZolin 330 MG/ML 1 GM VIAL ONE (11:23)
[2023-11-01] MEDS ORDERED: HYDROmorphone INJ 2 MG/ML SYR/VIAL ONE (12:22)
[2023-11-01] MEDS: BUPIVACAINE/EPINEPHRINE 0.5% MPF 1:200,000 30 ML VIAL ONE (13:26)
[2023-11-01] MEDS ORDERED: METOCLOPRAMIDE HCL INJ 5 MG/ML 2 ML VIAL IV PRN (13:46)
[2023-11-01] MEDS ORDERED: LORazepam 0.5 MG TAB PO PRN (13:46)
[2023-11-01] MEDS ORDERED: ONDANSETRON INJ 2 MG/ML 2 ML VIAL IV PRN (13:46)
[2023-11-01] MEDS ORDERED: LORazepam 0.5 MG in SYRINGE 0.25 ML IV PRN (13:46)
[2023-11-01] MEDS ORDERED: DO NOT ADMINISTER FLU VACCINE PRN (13:46)
[2023-11-01] MEDS ORDERED: PROMETHAZINE HCL 12.5 MG in SODIUM CHLORIDE 0.9% 50 ML IV PRN (13:46)
[2023-11-01] MEDS ORDERED: SOD PHOSPHATE/SOD BIPHOSPHATE ENEMA 132 ML BTL PR PRN (13:46)
[2023-11-01] MEDS ORDERED: ONDANSETRON 4 MG OD TAB PO PRN (13:46)
[2023-11-01] MEDS ORDERED: diphenhydrAMINE Capsule 25 MG CAP PO PRN (13:46)
[2023-11-01] MEDS ORDERED: DO NOT ADMINISTER PNEUMOCOCCAL VACCINE PRN (13:46)
[2023-11-01] MEDS ORDERED: FAMOTIDINE 20 MG TAB PO PRN (13:46)
[2023-11-01] MEDS ORDERED: hydrOXYzine HCl 25 MG TAB PO PRN (13:46)
[2023-11-01] MEDS ORDERED: NALOXONE HCL 0.4 MG/1 ML VIAL/CARP IV PRN (13:46)
--- NOTE | 2023-11-01 13:46 | Post Operative Brief Note ---
PG Immediate Post Op with CF Date of Surgery November 01, 2023 Pre & Post Diagnosis Operation Date: 11/01/23 07:15 Pre-Op Diagnosis: 1. Spondylolisthesis at L3-L4 and L4-L5 2. Lumbar Disc Herniation with Radiculopathy 3. Spinal Stenosis Post-Op Diagnosis: 1. Spondylolisthesis at L3-L4 and L4-L5 2. Lumbar Disc Herniation with Radiculopathy 3. Spinal Stenosis I identified the patient and participated in the time-out.: Yes Procedure Operation Date: 11/01/23 07:15 Actual Procedures p L3-L4, L4-L5 Lateral Lumbar Interbody Fusion with Interbody Cage and Posterior Instrumentation with Spinal Cord Monitoring(Not Applicable) - Finesse Cueva MD Surgeon Finesse Cueva MD Operations Asst none Estimated Blood Loss 60 Findings Consistent with Post-Op Diagnosis Specimens Specimen Description: No specimen per surgeon Drains Franco Catheter (Inserted prior to procedure start by Simi Andrade RN; 10cc in balloon; clear, yellow urine returned; leg strap applied)
[2023-11-01] MEDS ORDERED: CYCLOBENZAPRINE HCL 10 MG TAB PO PRN (13:52)
[2023-11-01] MEDS ORDERED: PSEUDOEPHEDRINE HCL 30 MG TAB PO PRN (13:52)
--- NOTE | 2023-11-01 13:58 | Fluoroscopy Report ---
FL lumbar spine 2-3V CLINICAL HISTORY: L3-L5 INTERBODY FUSION TECHNIQUE: 13 views were obtained with the C-arm in the OR with the above procedure. Total fluoroscop y time was 537 seconds. Radiation dose was 428 mGy. Comparison: Comparison is made to CT lumbar spine 08/19/2023 FINDINGS/IMPRESSION: Intraoperative images were obtained of L3-L4 and L4-L5 interbody fusion with cag e. Please correlate with intraoperative fluoroscopy and operative report. ACT 112: Negative or not required by law. Electronically signed by: Cheko Oneal M.D. 11/01/2023 1:56 PM
[2023-11-01] MEDS ORDERED: RIZATRIPTAN BENZOATE MLT 10 MG TAB PO PRN (14:17)
[2023-11-01] MEDS: HYDROmorphone INJ 0.5 MG/0.5 ML SYR IV PRN (15:39)
[2023-11-01] MEDS: LACTATED RINGER'S 1,000 ML IV SCH (15:40)
--- NOTE | 2023-11-01 15:53 | Hospitalist Consultation ---
Date of Consultation November 01, 2023 Assessment & Plan (1) Spondylolisthesis at L4-L5 level: Assessment: 1. Status post lumbar spine fusion at levels L3/L4-L4/L5. Postop day 0 today. 2. History of hypertension continue home medications. 3. History of dyslipidemia continue home medication. 4. History of migraine cephalgia not acutely. 5. History of "prediabetes" hemoglobin A1c will be obtained in the morning to assess glycemic control. 6. History of skin melanoma. 7. History of colonic polyps. Plan: As described above. Will obtain morning postoperative labs. Including hemoglobin A1c. Pain management per primary service. Thank you for the opportunity to Co. participate in the care of Mr. Flores he continues to convalesce his orthopedic spine surgery. Will continue to follow on a daily basis and as needed. Please refer to orders for further planning. History of Present Illness Reason for Consultation: Medical management status post spine surgery. Attending Physician: Finesse Cueva MD History of Present Illness Pleasant 73-year-old male who came to [facility] today to undergo L3 L5/L4-L5 lumbar spine fusion. He underwent the procedure and tolerated it well. Postoperative hospitalist consultation was placed for medical management. Patient tolerated the procedure well per staff. He is now in his room on the third floor. His only complaint is postoperative pain not out of proportion to his procedure currently being medicated while at the bedside. Allergies Allergy/AdvReac Type Severity Reaction Status Date / Time cephalexin [From Keflex] Allergy Intermediate Hives Verified 11/01/23 06:04 cephalothin Allergy Intermediate Hives Verified 11/01/23 06:04 chloramphenicol Allergy Intermediate Hives Verified 11/01/23 06:04 pollen extracts Allergy Mild sneezing/watery Verified 11/01/23 06:04 eyes ragweed pollen Allergy Mild sneezing/watery Verified 11/01/23 06:04 eyes Home Medications Medication Instructions Recorded Confirmed Type fluticasone propionate 50 1 spray intranasal QPM #16 grams 02/04/21 11/01/23 Rx mcg/actuation nasal spray,suspension montelukast 10 mg tablet 10 mg PO QPM #90 tabs 05/02/23 11/01/23 Rx cyclobenzaprine 10 mg tablet 10 mg PO TID PRN muscle spasm #21 08/10/23 11/01/23 Rx tabs njmdqzu-clciivzyppedl-mjvqreue 250 1 tab PO Q6H PRN Pain 08/13/23 11/01/23 History mg-250 mg-65 mg tablet (Excedrin Migraine) oxycodone 5 mg tablet 5 mg PO Q6H PRN pain #16 tabs 08/14/23 11/01/23 Rx cholecalciferol (vitamin D3) 50 50 mcg PO QAM 08/15/23 11/01/23 History mcg (2,000 unit) capsule fexofenadine 180 mg tablet 180 mg PO QPM 08/15/23 11/01/23 History (Franchesca Allergy) gabapentin 300 mg capsule 300 mg PO TID #90 caps 08/15/23 11/01/23 Rx latanoprost 0.005 % eye drops 1 drp ophthalmic (eye) QPM 08/15/23 11/01/23 History magnesium 500 mg PO QPM 08/15/23 11/01/23 History meloxicam 15 mg tablet 15 mg PO QAM Pain 08/15/23 11/01/23 History multivitamin 1 tab PO QAM 08/15/23 11/01/23 History oxycodone-acetaminophen 5 mg-325 1 tab PO BID #20 tabs 08/15/23 11/01/23 Rx mg tablet (Percocet) pseudoephedrine HCl 30 mg tablet 30 mg PO Q4H PRN Sinus Symptoms 08/15/23 11/01/23 History (Sudafed) hydrocodone 5 mg-acetaminophen 325 1 tab PO BID PRN pain #30 tabs 08/26/23 11/01/23 Rx mg tablet Leg Cramps Pm 1 tab PO HS 09/28/23 11/01/23 History Super Beets 2 gummy PO QAM 09/28/23 11/01/23 History amlodipine 5 mg tablet 5 mg PO QAM 09/28/23 11/01/23 History atenolol 25 mg tablet 25 mg PO QAM 09/28/23 11/01/23 History coenzyme Q10 100 mg capsule (Co 100 mg PO QAM 09/28/23 11/01/23 History Q-10) glucosamine-chondroitin 250 mg-200 1 tab PO BID 09/28/23 11/01/23 History mg tablet (Osteo Bi-Flex) losartan 100 mg tablet 100 mg PO QAM 09/28/23 11/01/23 History polyethylene glycol 3350 17 17 g PO DAILY PRN Constipation 09/28/23 11/01/23 History gram/dose oral powder (Miralax) rizatriptan 10 mg disintegrating 10 mg PO UD PRN migraines 09/28/23 11/01/23 History tablet Patient History Medical History Allergic rhinitis due to pollen Degenerative disc disease Dyslipidemia Per records Glaucoma History of anemia History of colon polyps Hx of melanoma of skin Hx of migraines Hypertension Neurogenic claudication due to lumbar spinal stenosis Prediabetes Per records Spinal stenosis "Severe" L3-4, L4-5 Surgical History History of appendectomy History of colonoscopy with polypectomy 04/2019, repeat 5 years History of fusion of cervical spine (~2009) C4, C6 History of lumbar surgery 2010, L4 (same time as Cervical spinal fusion) @ [facility] [place] History of open reduction and internal fixation (ORIF) procedure left shoulder, no hardware Hx of melanoma excision back Family History Father Diabetes Transient ischemic attack Parkinson's disease Stroke Mother Migraines Hypertension Other No family history of adverse response to anesthesia Denies family history of Ovarian cancer Prostate cancer Myocardial infarction Breast cancer Lung cancer Colorectal cancer Social History Smoking Status: Never smoker Second Hand Exposure: No; Do You Dip or Chew Tobacco: No; Tobacco Cessation Education Requested by Patient: No Hx Alcohol Use: Yes Alcohol type: wine Alcohol Intake Frequency: 2-3 x/Week Hx Substance Use: No Preferred Language: Barbadian Communication Ability: Effective Visual Impairment: Limited Hearing Ability: Normal Fitter Placer Required: No Beliefs That Will Affect Care: None marital status: Current Living Situation: Spouse current occupational status: retired How many Children do You have: 0 Other Information That Helps Us Care for You: No Feels Safe at Home: Yes Safety Concerns: Feels Safe At This Time Childhood Exposure to Second-Hand Smoke: Yes caffeine: Yes (coffee, tea ) Dental Care, Regularly: Yes Physical Activity Frequency: Daily Seatbelt Use: always Sunscreen Use: Yes Assistive Devices: Contacts and Glasses Review of Systems Review of Systems: A 10 point review of system was obtained and unless otherwise stated here or in history of present illness are negative and noncontributory to chief complaint. Physical Exam Physical Exam: In General: In general pleasant 73-year-old male who is alert and oriented x 3 at the time of my exam he is accompanied by his at the time of my examination. He interacts appropriately. He is in moderate amount of postoperative distress with his back pain but again just being medicated after arrival to the floor while I was in the room. HEENT: Normocephalic atraumatic pupils are equal round and reactive to light bilaterally. No scleral icterus no conjunctival injection external auditory canals are patent septum is in the midline nose is without discharge oral mucosa is pink and moist without lesion. NECK: Supple no rigidity no lymphadenopathy no thyromegaly no carotid bruits no JVD no masses. HEART: Regular rate and rhythm I do not appreciate any ectopy or rub. No murmur. LUNGS: Clear to auscultation bilaterally and anteriorly with no evidence of adventitious sounds/wheezes rales or rhonchi. ABDOMEN: Soft nontender, no rebound, no peritoneal signs, positive bowel sounds, no appreciable organomegaly. EXTREMITIES: Neurovascularly intact. No further extremity exam due to the postoperative nature of the patient. NEUROLOGICAL: No gross abnormalities but complete neurologic exam deferred given the postoperative nature of the patient. Results & Data Results & Data Vital Signs (Past 12 Hours) Vital Signs Temp Pulse Pulse Resp BP Pulse Ox O2 Del Method 11/01/23 15:31 71 18 129/76 97 Nasal Cannula 11/01/23 15:16 36.4 C L 75 16 136/77 98 Nasal Cannula 11/01/23 14:45 72 12 129/83 96 Nasal Cannula 11/01/23 14:35 36.4 C L 74 12 131/75 96 Nasal Cannula 11/01/23 14:25 71 18 127/75 96 Oxymask 11/01/23 14:15 70 16 122/62 96 Oxymask 11/01/23 14:05 67 12 112/68 95 Oxymask 11/01/23 13:55 69 12 120/70 97 Oxymask 11/01/23 13:45 36.2 C L 66 18 116/68 98 Oxymask 11/01/23 05:58 36.7 C 62 20 167/96 H O2 Flow Rate 11/01/23 15:31 2.0 11/01/23 15:16 2 11/01/23 14:45 2 11/01/23 14:35 2 11/01/23 14:25 4 11/01/23 14:15 4 11/01/23 14:05 4 11/01/23 13:55 6 11/01/23 13:45 6 11/01/23 05:58 PG Care Time/CCT Total # of Minutes Spent Total Time Spent with Patient: Total time spent is greater than 50% in coordination of care (as documented) at patient's floor/unit and/or counseling patient: Coding Level of Care Code 44055 IN/OBS CONSULT LVL 3,45M Diagnoses Spondylolisthesis at L4-L5 level M43.16
[2023-11-01] MEDS: GABAPENTIN 300 MG CAP PO SCH (15:58)
[2023-11-01] MEDS: oxyCODONE/ACETAMINOPHEN 5mg/325mg TAB PO PRN (16:27)
[2023-11-01] MEDS: ACETAMINOPHEN 1,000 MG/100 ML VIAL IV PRN (20:14)
[2023-11-01] MEDS: ceFAZolin 1000MG 1,000 MG/7.5 ML SYR IV SCH (20:15)
[2023-11-01] MEDS: MONTELUKAST SODIUM 10 MG TABLET PO SCH (20:23)
[2023-11-01] MEDS: FLUTICASONE PROPIONATE NA SPR 16 GM BTL SCH (20:24)
[2023-11-01] MEDS: DOCUSATE SODIUM/SENNA 50/8.6MG TAB PO SCH (20:24)
[2023-11-01] MEDS: LATANOPROST 0.005% OP SOLN 2.5 ML BTL OP SCH (20:25)
[2023-11-02] MEDS: POLYETHYLENE (MIRALAX) 17 GM PACK PO SCH (05:16)
[2023-11-02] MEDS ORDERED: PROMETHAZINE 12.5 MG/50.5 ML BAG IV PRN (06:48)
[2023-11-02 07:05] LABS: Basophils # (auto) 0.01 K/uL (0.00-0.20); Basophils % (auto) 0.1 %; Hemoglobin 13.1 g/dl (14.0-18.0); Immature Granulocytes # (auto) 0.07 K/uL (0.01-0.20); Immature Granulocytes % (auto) 0.6 %; Lymphocytes # (auto) 1.56 K/uL (1.20-3.40); Mean Corpuscular Hgb Conc 35.4 g/dL (32.0-36.0); Mean Corpuscular Volume 90.2 fL (80.0-100.0); Mean Platelet Volume 9.3 fL (9.4-12.4); Monocytes # (auto) 1.11 K/uL (0.11-0.59); Monocytes % (auto) 9.3 %; Neutrophils # (auto) 9.24 K/uL (1.40-6.50); Platelet Count 249 K/uL (130-400); RDW Coefficient of Variation 12.3 % (11.5-14.5); RDW Standard Deviation 40.6 fL (36.4-46.3); White Blood Count 11.99 K/ul (4.8-10.8)
--- NOTE | 2023-11-02 07:08 | Orthopedic Progress Note ---
Date of Service November 02, 2023 Subjective Patient seen and examined, he notes improvement in the lower extremity symptoms that he had preoperatively. He has some soreness more posteriorly in the area of the hardware insertion only. He does have numbness in the anterior right thigh. Exam reveals him to have some weakness with right hip flexion as compared to the left side otherwise motor intact, some slight decrease sensation anteriorly diffusely right thigh. Impression: Postoperative day 1 from L3-4 and L4-5 right-sided lateral cage placement with posterior percutaneous instrumentation, improvement of preoperative symptoms, but some symptomatology relative to the approach on the right side anterior thigh and lower extremity. Plan: Today we will mobilize patient with physical therapy, he relates that he has already been up and walking the hallway. I related the patient that we will see how he does during the day, if he is doing well later this afternoon he can be discharged from an orthopedic standpoint if he clears physical therapy and medical evaluation by the hospitalist. Review of Systems All systems reviewed & are unremarkable except as noted in HPI & below. Physical Exam . Results & Data Results & Data Laboratory Results . Diagnostic Findings . PG Care Time/CCT Total # of Minutes Spent Total Time Spent with Patient: Total time spent is greater than 50% in coordination of care (as documented) at patient's floor/unit and/or counseling patient: Coding Level of Care Code 08385 Post Operative Follow-Up
--- NOTE | 2023-11-02 07:15 | Discharge Summary ---
Date of Service November 02, 2023 Admission HPI (Per Admitting) Lumbar stenosis with radiculopathy, degenerative spondylolisthesis. Principal Diagnosis Same as "Discharge Diagnosis" noted below under Discharge Instructions. Discharge Exam . Discharge Data Consultations 11/01/23 13:46 Consult Hospitalist Routine Procedures Performed Operation Date: 11/01/23 07:15 Actual Procedures p L3-L4, L4-L5 Lateral Lumbar Interbody Fusion with Interbody Cage and Posterior Instrumentation with Spinal Cord Monitoring(Not Applicable) - Finesse Cueva MD Ordered Studies 11/01/23 07:15 FL lumbar spine 2-3V Routine PG Care Time/CCT Total # of Minutes Spent Total Time Spent with Patient: Total time spent is greater than 50% in coordination of care (as documented) at patient's floor/unit and/or counseling patient: Discharge Plan Discharge Items Patient Disposition: Home - Self-Care Reason For Visit: Spongylolisthesis at L4-L5 Level, Spondylolisthesi Discharge Diagnosis: Lumbar stenosis, degenerative spondylolisthesis. Condition on Discharge: Good Activity: As commented below Lifting: No more than 10 pounds Bathing: May shower/bathe in 3 days Non-emergency contact: Surgeon Call non-emergency contact if: your pain is worsening Follow-up/Referrals: Carlos Alejandro DO [Primary Care Provider] - Diet: Regular Addtl Attending Provider Instructions: Ambulation as tolerated, follow-up in 2 weeks. Pending Studies at Discharge: No Stand-Alone Forms: [employer], Smoking Cessation Medications and DC Order Prescriptions: Continued montelukast 10 mg tablet 10 mg PO QPM Qty: 90 3RF cyclobenzaprine 10 mg tablet 10 mg PO TID PRN (Reason: muscle spasm) Qty: 21 0RF hydrocodone-acetaminophen 5-325 mg tablet 1 tab PO BID PRN (Reason: pain) Qty: 30 0RF fluticasone propionate 50 mcg/actuation spray,suspension 1 spray intranasal QPM Qty: 16 3RF pseudoephedrine HCl [Sudafed] 30 mg tablet 30 mg PO Q4H PRN (Reason: Sinus Symptoms) multivitamin Tablet 1 tab PO QAM magnesium 500 mg PO QPM latanoprost 0.005 % drops 1 drp ophthalmic (eye) QPM cholecalciferol (vitamin D3) 50 mcg (2,000 unit) capsule 50 mcg PO QAM fexofenadine [Franchesca Allergy] 180 mg tablet 180 mg PO QPM gabapentin 300 mg capsule 300 mg PO TID Qty: 90 2RF oxycodone-acetaminophen [Percocet] 5-325 mg tablet 1 tab PO BID Qty: 20 0RF Excedrin Migraine 250-250-65 mg Tablet 1 tab PO Q6H PRN (Reason: Pain) oxycodone 5 mg tablet 5 mg PO Q6H PRN (Reason: pain) Qty: 16 0RF polyethylene glycol 3350 [Miralax] 17 gram/dose Powder 17 g PO DAILY PRN (Reason: Constipation) coenzyme Q10 [Co Q-10] 100 mg Capsule 100 mg PO QAM glucosamine-chondroitin [Osteo Bi-Flex] 250-200 mg Tablet 1 tab PO BID Rx Instructions: give after food/meal Leg Cramps Pm 1 tab PO HS Super Beets 2 gummy PO QAM atenolol 25 mg tablet 25 mg PO QAM amlodipine 5 mg tablet 5 mg PO QAM rizatriptan 10 mg tablet,disintegrating 10 mg PO UD PRN (Reason: migraines) Rx Instructions: take 1 tab at onset of headache; if no relief may repeat 1 tab after at least 2 hrs; max = 3 tabs/24 hr PO losartan 100 mg tablet 100 mg PO QAM Held meloxicam 15 mg tablet 15 mg PO QAM Hold Instructions: Resume on 01/09/24. Discharge Orders: Discharge Order (Routine); Ordered 11/03/23 Ordered By: Finesse Cueva Admission Data Admit Date/Time: 11/01/23 13:46 Attending Provider: Finesse Cueva Admit Provider: Finesse Cueva Primary Care Provider: Carlos Alejandro Other Providers: Bryn Finn; Noel Mccurdy; Juan Viramontes; Milo Hardy; Sarabjit Mir; Eliane Scherer; Marielos Almodovar; Lydia Reed; Melody Soto; Cruzito Merchant; Dg Benz; Solange Jo; Angel Johnson; Noel Arceo; Patricio Christianson; Iliana Brush; Dodie Cintron; Dodie Churchill; Hui Saldivar; Domenica Layton N; Reignald Weldon; Fabienne Dumont; Aston Mancini; Vinh Downey; Preethi Smith.; Tianna Chirinos; Noemi Pedraza; Trung Irene; Urmila Sanz; Juan Gillespie; Milo Bardales; Annabelle Goodrich; Rozina Nixon; Azalia Suazo; Martin Contreras
[2023-11-02 07:26] LABS: Albumin Globulin Ratio 1.5 (0.9-2); BUN Creatinine Ratio 18.4 (10-20); Bilirubin,Total 0.4 mg/dl (0.2-1.0); Est GFR (African American) 99.9 ml/min; Est GFR (Non-African American) 86.2 ml/min; Globulin 2.7 gm/dl (2.5-4.0); Potassium 4.1 mmol/L (3.5-5.1); Total Protein 6.7 gm/dl (6.0-8.3)
[2023-11-02 07:29] LABS: Estimated Average Glucose 123 mg/dl; Hemoglobin A1C 5.9 % (4.5-5.6)
[2023-11-02] MEDS: ATENOLOL 25 MG TABLET PO SCH (08:01)
[2023-11-02] MEDS: LOSARTAN POTASSIUM 50 MG TAB PO SCH (08:01)
[2023-11-02] MEDS: amLODIPine BESYLATE 5 MG TAB PO SCH (08:02)
[2023-11-02] MEDS: ACETAMINOPHEN 500 MG TAB PO PRN (08:03)
--- NOTE | 2023-11-02 10:26 | Hospitalist Progress Note ---
Date of Service November 02, 2023 Assessment & Plan (1) Spondylolisthesis at L4-L5 level: Plan: Assessment: 1. Status post lumbar spine fusion at levels L3/L4-L4/L5. Postop day 1 today. 2. History of hypertension continue home medications. 3. History of dyslipidemia continue home medication. 4. History of migraine cephalgia not acutely. 5. History of "prediabetes" hemoglobin A1c: 5.9% 6. History of skin melanoma. 7. History of colonic polyps. Plan: As described above. Pain management per primary service. Hopeful discharge home 11/02. At this time the hospitalist service will sign off. Please call us with any questions or concerns. Admission and Anticipated Discharge Date Admission Date: November 01, 2023 Subjective Patient seen and examined this morning. Patient reports PT would like patient here an additional day due to his difficulty ambulating this morning. He was experiencing numbness in anterior right thigh at time of encounter and some soreness in his lower back but denied any additional complaints. Denied chest pain or shortness of breath. Physical Exam Constitutional: WD/WN, vitals as above Eyes: PERRL, conjunctivae normal, anicteric sclerae Respiratory: normal respiratory effort, lungs clear to auscultation Cardiovascular: RRR, no murmur, no edema Skin: no rashes, warm and dry Psychiatric: A+Ox3, euthymic affect Results & Data Results & Data Vital Signs (Past 12 Hours) Vital Signs Temp Pulse Pulse Resp BP Pulse Ox O2 Del Method 11/02/23 08:03 36.5 C 79 17 158/76 H 95 Room Air 11/02/23 03:07 36.6 C 76 18 131/69 97 Room Air 11/01/23 22:31 36.4 C L 78 18 147/75 H 96 Room Air PG Care Time/CCT Total # of Minutes Spent Total Time Spent with Patient: Total time spent is greater than 50% in coordination of care (as documented) at patient's floor/unit and/or counseling patient: Coding Level of Care Code 89945 SUB INP/OBS CARE 2/35MIN Diagnoses Spondylolisthesis at L4-L5 level M43.16
[2023-11-03 07:12] VITALS: BP 150/81; PULSE 79; RESP 16; TEMP 98.1; O2SAT 94
[2023-11-03] MEDS: ALUMINUM/MAGNESIUM SUSP 30 ML UDC PO PRN (09:01)
[2023-11-03] MEDS: bisacodyL 10 MG SUPP PR PRN (12:24)
--- NOTE | 2023-11-03 14:26 | Orthopedic Progress Note ---
Date of Service November 03, 2023 Subjective Patient seen and examined, he notes improvement in the right anterior thigh symptoms less numbness and he is ambulating well in the hospital, cleared with physical therapy. He has some incisional pain posteriorly. Exam otherwise as noted from yesterday is intact no notable issues. Impression: 2 days status post surgery at L3-4 and L4-5 lateral cage placement posterior instrumentation. Plan: Today the patient will discharge home we will see him back in 2 weeks I will provide a prescription for some oxycodone. Review of Systems All systems reviewed & are unremarkable except as noted in HPI & below. Physical Exam . Results & Data Results & Data Laboratory Results . Diagnostic Findings . PG Care Time/CCT Total # of Minutes Spent Total Time Spent with Patient: Total time spent is greater than 50% in coordination of care (as documented) at patient's floor/unit and/or counseling patient: Coding Level of Care Code 81735 Post Operative Follow-Up
[2023-11-03] MEDS: MAGNESIUM HYDROXIDE SUSP 30 ML UDC PO PRN (14:56)
--- NOTE | 2023-11-04 08:23 | Operative Report ---
[facility] Post Operative Report Pre & Post Diagnosis Operation Date: 11/01/23 07:15 Pre-Op Diagnosis: 1. Spondylolisthesis at L3-L4 and L4-L5 2. Lumbar Disc Herniation with Radiculopathy 3. Spinal Stenosis Post-Op Diagnosis: 1. Spondylolisthesis at L3-L4 and L4-L5 2. Lumbar Disc Herniation with Radiculopathy 3. Spinal Stenosis I identified the patient and participated in the time-out.: Yes Procedure Operation Date: 11/01/23 07:15 Actual Procedures p L3-L4, L4-L5 Lateral Lumbar Interbody Fusion with Interbody Cage and Posterior Instrumentation with Spinal Cord Monitoring(Not Applicable) - Finesse Cueva MD Surgeon Finesse Cueva MD A/C Technician none Estimated Blood Loss 60 Findings Consistent with Post-Op Diagnosis Specimens none Description of Procedure 1. Right L4-5 lateral interbody arthrodesis. (65697) 2. Right L3-4 lateral interbody arthrodesis. (05023) 3. L4-5 lateral interbody cage, NuVasive cohere XL 8 x 18 x 50 mm 10 degrees. (75521) 4. L3-4 lateral interbody cage, NuVasive cohere XL 10 x 22 x 60 mm 10 degrees lordotic ([id number]) 3. L4-5 posterior segmental instrumentation, NuVasive reline 6.5 mm x 50 and 55 mm. ([id number]) Patient was taken operating room and after good anesthesia patient was positioned in a left lateral decubitus right side up positioning on the OR table. After checking all areas for positioning, the patient was secured to the table in routine fashion for a lateral approach to the L4-5 level. Preprepped was performed, adjustments were made, and fluoroscopy was brought in to confirm the alignment on the table with marking the approximate location of the incision followed by prepping and draping. A jejunal incision was made just over the iliac crest in line with the L4-5 level and then advanced down through subcutaneous tissues into the retroperitoneal area was able to palpate the psoas muscle. From here I then inserted the initial dilator and advanced this down to the lateral aspect of the disc base at L4-5 and confirmed its location fluoroscopically and using the monitoring. Adjustments had to be made prior to this with the monitoring system due to difficulties with the NuVasive reline. With initial dilators in place, the apparatus for the approach was inserted and then secured to the table. I inspected the lateral aspect of the disc base followed by then inserting the channing. The position was confirmed on fluoroscopy and I moved ahead with the operative procedure. Lateral incision was then made in the annulus followed by then thorough removal of disc material through the interspace. Combination of curettes and brandy were utilized to remove this disc material down to good endplate bone. Then went through trials selecting the size as noted for the interbody cage which provided some adequate distraction for this level. The cage was then obtained, fusion materials inserted within the cage and also outside the cage anteriorly and posteriorly and this was inserted without any issue with excellent alignment. Vancomycin powder was placed, the operative after apparatus was removed without any issue noted. The operative site was then closed after inserting some additional vancomycin powder using combination 0's 2-0 Vicryl sutures and mike for the skin. Fluoroscopy was then brought in to nils for the approach region for L3-4, incision was marked followed by lateral incision horizontally above the prior incision. I was able then to dissect down into the retroperitoneal region, landing on the lateral aspect of L3-4 without issue. At this time the same type procedures performed with then utilizing monitoring and fluoroscopy to place the Jamshidi after inspecting the operative site with the probe, and then moving ahead with inserting an stabilizing access apparatus. Lateral incision was made in the L3-4 disc base followed by then removal of disc material in a similar fashion, placement of cage as noted same size as the previous level. The operative site was then closed in a similar fashion after placement of vancomycin powder sterile dressing was applied. Patient was then repositioned prone on the Nick top, preprepped was performed followed by bringing in fluoroscopy where I marked for the approximate location for the incisions for the instrumentation. Prep and drape was performed, then began the procedure with 2 oblique longitudinal incisions on either side of the L3-5 interspace. Dissecting down through subcutaneous tissues into the fascia, I was able to then insert the initial Jamshidi needle on either side at the L5 level using combination of fluoroscopy I was able to advance the Jamshidi into the pedicle and vertebral body at L5. This was then removed guidewires were inserted, I then performed a similar procedure at L4 with insertion of the guidewires without issue with excellent position. I then tapped using monitoring in each instance with a 5.5 mm tap followed by insertion of 6.5 millimeter screws, all screws were then tested later and found greater than 20. Similar procedure was then performed for L3 without issue. I then inserted rods and provided some limited distraction on the right side to provide improved alignment, all the setscrews were locked down. The operative site was irrigated and vancomycin was placed after local anesthetic, and the operative site was closed with 0 Vicryl sutures in the fascial layer followed by 2-0 Vicryl sutures and mike for skin. Sterile dressing was applied, the patient was taken recovery room in sati sfactory condition. I attest to the content of the Intraoperative Record and any orders documented therein. Any exceptions are noted below. I attest to the content of the Intraoperative Record and any orders documented therein. Any exceptions are noted below.
== END 2023-11-03 15:41 | disposition home or self-care (01) | DRG 460 ==
LOC: ASU 05:42 → 3E 13:46